=== PATIENT | female | born 1940 | race Caucasian/White ===

== ENCOUNTER 2019-08-17 16:20 | Observation (INO) | payer MEDICAID, MEDICARE ==
[2019-08-17] MEDS ORDERED: Albuterol/Ipratropium 3.0-0.5 MG/3 ML Neb Soln ONE (16:25)
[2019-08-17] MEDS ORDERED: Aspirin 81 MG Tab.Chew PO ONE (16:31)
[2019-08-17] MEDS ORDERED: methylPREDNISolone Sodium Succinate 125 MG/2 ML SDV IVPUSH ONE (16:32)
--- NOTE | 2019-08-17 16:32 | EDM.PDOC ---
ED HPI GENERAL MEDICAL PROBLEM - General Chief Complaint: Respiratory Problem Stated Complaint: TROUBLE BREATHING Time Seen by Provider: 08/17/19 16:22 - History of Present Illness INITIAL COMMENTS - FREE TEXT/NARRATIVE: HISTORY AND PHYSICAL: History of present illness: Patient is 79-year-old white female history COPD who presents with a concern of shortness of breath patient recently moved to the area and brought her medications but does not have a nebulizer she denies chest pain nausea vomiting fever chills or other complaints. Review of systems: As per history of present illness and below otherwise all systems reviewed and negative. Past medical history: As per history of present illness and as reviewed below otherwise noncontributory. Surgical history: As per history of present illness and as reviewed below otherwise noncontributory. Social history: No reported history of drug or alcohol abuse. Family history: As per history of present illness and as reviewed below otherwise noncontributory. Physical exam: HEENT: Atraumatic, normocephalic, pupils reactive, negative for conjunctival pallor or scleral icterus, mucous membranes moist, throat clear, neck supple, nontender, trachea midline. Lungs: Diminished slightly coarse bilaterally, breath sounds equal bilaterally, chest nontender. Heart: S1S2, regular, negative for clicks, rubs, or JVD. Abdomen: Soft, nondistended, nontender. Negative for masses or hepatosplenomegaly. Negative for costovertebral tenderness. Pelvis: Stable nontender. Genitourinary: Deferred. Rectal: Deferred. Extremities: Atraumatic, negative for cords or calf pain. Neurovascular unremarkable. Neuro: Awake, alert, oriented. Cranial nerves II through XII unremarkable. Cerebellum unremarkable. Motor and sensory unremarkable throughout. Exam nonfocal. Diagnostics: CBC CMP troponin PT/INR chest x-ray EKG Therapeutics: Albuterol ipratropium nebulizer IV O2 monitor I Medrol 125 mg IV Impression: #1 COPD with exacerbation #2 medical noncompliance Definitive disposition and diagnosis as appropriate pending reevaluation and review of above. - Related Data Allergies Allergy/AdvReac Type Severity Reaction Status Date / Time cephalexin [From Keflex] Allergy Hives Verified 08/17/19 16:30 Sulfa (Sulfonamide Allergy Hives Verified 08/17/19 16:30 Antibiotics) ED ROS GENERAL - Review of Systems Review Of Systems: Comprehensive ROS is negative, except as noted in HPI. ED EXAM, GENERAL - Physical Exam Exam: See Below (dictation) Course - Vital Signs Last Recorded V/S: Last Vital Signs Temp 36.5 C 08/17/19 16:26 Pulse 79 08/17/19 18:30 Resp 21 H 08/17/19 18:30 BP 128/58 L 08/17/19 18:30 Pulse Ox 99 08/17/19 18:30 - Orders/Labs/Meds Orders: Active Orders 24 hr Category Date Time Status Cardiac Monitoring [RC] . DIRECTED Care 08/17/19 16:31 Active EKG Documentation Completion [RC] STAT Care 08/17/19 16:31 Active Oxygen Therapy [RC] ASDIRECTED Care 08/17/19 16:31 Active Pulse Oximetry [RC] ASDIRECTED Care 08/17/19 16:31 Active UA W/MICROSCOPIC [URIN] Stat Lab 08/17/19 16:31 Ordered Labs: Laboratory Tests 08/17/19 08/17/19 08/17/19 Range/Units 16:49 16:49 16:49 WBC 10.19 (4.0-11.0) K/uL RBC 4.57 (4.30-5.90) M/uL Hgb 12.7 (12.0-16.0) g/dL Hct 41.4 (36.0-46.0) % MCV 90.6 (80.0-98.0) fL MCH 27.8 (27.0-32.0) pg MCHC 30.7 L (31.0-37.0) g/dL RDW Std Deviation 49.0 (28.0-62.0) fl RDW Coeff of Robinson 15 (11.0-15.0) % Plt Count 331 (150-400) K/uL MPV 9.80 (7.40-12.00) fL Neut % (Auto) 56.5 (48.0-80.0) % Lymph % (Auto) 32.2 (16.0-40.0) % [place] % (Auto) 8.8 (0.0-15.0) % Eos % (Auto) 2.2 (0.0-7.0) % Baso % (Auto) 0.3 (0.0-1.5) % Neut # (Auto) 5.8 H (1.4-5.7) K/uL Lymph # (Auto) 3.3 H (0.6-2.4) K/uL [place] # (Auto) 0.9 H (0.0-0.8) K/uL Eos # (Auto) 0.2 (0.0-0.7) K/uL Baso # (Auto) 0.0 (0.0-0.1) K/uL Nucleated RBC % 0.0 /100WBC Nucleated RBCs # 0 K/uL INR 0.97 Sodium 146 H (136-145) mmol/L Potassium 4.2 (3.5-5.1) mmol/L Chloride 111 H (98-107) mmol/L Carbon Dioxide 26.1 (21.0-32.0) mmol/L BUN 12 (7.0-18.0) mg/dL Creatinine 0.9 (0.6-1.0) mg/dL Est Cr Clr Drug Dosing 50.90 mL/min Estimated GFR (MDRD) > 60.0 ml/min Glucose 119 H (74-106) mg/dL Calcium 8.9 (8.5-10.1) mg/dL Total Bilirubin 0.3 (0.2-1.0) mg/dL AST 33 (15-37) IU/L ALT 32 (14-63) IU/L Alkaline Phosphatase 76 (46-116) U/L Troponin I < 0.050 (0.000-0.056) ng/mL Total Protein 6.4 (6.4-8.2) g/dL Albumin 3.0 L (3.4-5.0) g/dL Globulin 3.4 (2.6-4.0) g/dL Albumin/Globulin Ratio 0.9 (0.9-1.6) Meds: Medications Discontinued Medications Generic Name Dose Route Start Last Admin Trade Name Freq PRN Reason Stop Dose Admin Albuterol/Ipratropium Confirm 08/17/19 16:25 08/17/19 17:07 Duoneb 3.0-0.5 Mg/3 Ml Administered 08/17/19 16:26 3 ml Dose Administration 3 ml .ROUTE .STK-MED ONE Aspirin 324 mg 08/17/19 16:31 08/17/19 17:07 Aspirin PO 08/17/19 16:32 324 mg ONETIME ONE Administration Methylprednisolone Sodium Succinate 125 mg 08/17/19 16:32 08/17/19 17:09 Solu-Medrol IVPUSH 08/17/19 16:33 125 mg ONETIME ONE Administration Departure - Departure Time of Disposition: 18:40 Disposition: Home, Self-Care 01 Condition: Good Clinical Impression: COPD (chronic obstructive pulmonary disease) - Discharge Information Referrals: Kady Cantrell DO [Primary Care Provider] - Forms: ED Department Discharge - My Orders Last 24 Hours: My Active Orders 08/17/19 16:31 Cardiac Monitoring [RC] . DIRECTED EKG Documentation Completion [RC] STAT Oxygen Therapy [RC] ASDIRECTED Pulse Oximetry [RC] ASDIRECTED UA W/MICROSCOPIC [URIN] Stat - Assessment/Plan Last 24 Hours: My Active Orders 08/17/19 16:31 Cardiac Monitoring [RC] . DIRECTED EKG Documentation Completion [RC] STAT Oxygen Therapy [RC] ASDIRECTED Pulse Oximetry [RC] ASDIRECTED UA W/MICROSCOPIC [URIN] Stat
[2019-08-17 17:26] LABS: BLOOD UREA NITROGEN,BUN 12 mg/dL (7.0-18.0); CARBON DIOXIDE,CO2 26.1 mmol/L (21.0-32.0); CHLORIDE,CL 111 mmol/L (98-107); GLUCOSE RANDOM 119 mg/dL (74-106); POTASSIUM,K 4.2 mmol/L (3.5-5.1); SODIUM,NA 146 mmol/L (136-145)
--- NOTE | 2019-08-17 18:08 | CR ---
Indication: SOB Technique: A single AP view of the chest was obtained. Comparison: None Findings: The heart is normal in size. The lungs are clear. No infiltrate, pleural effusion, or pneumothorax is identified. Impression: No acute cardiopulmonary process. Dictated by Bethany Woodruff MD @ Aug 17 2019 6:04PM Signed by Dr. Bethany Woodruff @ Aug 17 2019 6:06PM
[2019-08-17] MEDS ORDERED: Gabapentin 300 MG Cap PO SCH (21:00)
[2019-08-17] MEDS: Insulin Aspart 100 Units/ML 3 ML Pen SUBCUT SCH (22:04)
[2019-08-17] MEDS ORDERED: Albuterol/Ipratropium 3.0-0.5 MG/3 ML Neb Soln NEB PRN (22:25)
--- NOTE | 2019-08-17 22:37 | PCM.HP.2 ---
H&P History of Present Illness - General Date of Service: 08/17/19 Admit Problem/Dx: Admission Diagnosis/Problem Admission Diagnosis/Problem COPD, Mild chronic obstructive pulmonary disease - History of Present Illness Initial Comments - Free Text/Narative: 79 yo female with pmh of COPD, ZAHRA, atrial fibrillation, s/p ablation on Eliquis who presents with one day history of exertional dyspnea, cough, and wheezing. Patient denies any fevers, chest pain, or chills. legs Pain Score (Numeric/FACES): 10 - Related Data Allergies/Adverse Reactions: Allergies Allergy/AdvReac Type Severity Reaction Status Date / Time cephalexin [From Keflex] Allergy Hives Verified 08/17/19 20:25 Sulfa (Sulfonamide Allergy Hives Verified 08/17/19 20:25 Antibiotics) Home Medications: Home Meds Acyclovir 400 mg PO DAILY 08/17/19 [History] Allopurinol [Zyloprim] 100 mg PO DAILY 08/17/19 [History] Apixaban [Eliquis] 5 mg PO BID 08/17/19 [History] Cholecalciferol (Vitamin D3) [Vitamin D] 50,000 unit PO WEEKLY 08/17/19 [History ] Furosemide [Lasix] 80 mg PO BID 08/17/19 [History] Gabapentin [Neurontin] 100 mg PO DAILY 08/17/19 [History] Gabapentin [Neurontin] 300 mg PO BEDTIME 08/17/19 [History] Levothyroxine 125 mcg PO ACBREAKFAST 08/17/19 [History] Liraglutide [Victoza] 1.8 mg SUBCUT DAILY 08/17/19 [History] Meloxicam [Mobic] 7.5 mg PO BID 08/17/19 [History] Montelukast [Singulair] 10 mg PO DAILY 08/17/19 [History] Nystatin [Nystop] 60 gm TP BID 08/17/19 [History] Potassium Chloride 32 meq PO BID 08/17/19 [History] Simvastatin 20 mg PO BEDTIME 08/17/19 [History] amLODIPine [Norvasc] 5 mg PO DAILY 08/17/19 [History] metFORMIN [Glucophage XR] 500 mg PO BIDMEALS 08/17/19 [History] Albuterol [Ventolin HFA] 1 puff INH Q4H PRN #1 puff 08/18/19 [Rx] Fluticasone/Salmeterol [Advair 250-50 Diskus] 1 each IH BID #1 disk.w.dev [Rx] Levofloxacin [Levaquin] 500 mg PO DAILY #5 tablet 08/18/19 [Rx] predniSONE [Prednisone] 50 mg PO DAILY #5 tablet 08/18/19 [Rx] Past Medical History Cardiovascular History: Reports: Heart Failure, Hypertension Respiratory History: Reports: COPD Musculoskeletal History: Reports: Back Pain, Chronic Endocrine/Metabolic History: Reports: Hypothyroidism - Infectious Disease History Infectious Disease History: Reports: Chicken Pox Social & Family History - Family History Family Medical History: Noncontributory - Tobacco Use Smoking Status *Q: Never Smoker H&P Review of Systems - Review of Systems: Review Of Systems: Comprehensive ROS is negative, except as noted in HPI. Exam - Exam Exam: See Below - Vital Signs Vital Signs: Last Vital Signs Temp 36.4 C 08/17/19 20:00 Pulse 85 08/17/19 20:00 Resp 19 08/17/19 20:00 BP 129/59 L 08/17/19 20:00 Pulse Ox 97 08/17/19 20:00 Weight: 106.141 kg - Exam General: Alert, Oriented Lungs: Clear to Auscultation, Normal Respiratory Effort Cardiovascular: Regular Rate, Regular Rhythm GI/Abdominal Exam: Normal Bowel Sounds, Soft, Non-Tender Extremities: Non-Tender, No Pedal Edema Skin: Warm, Dry, Intact - Patient Data Lab Results Last 24 hrs: Laboratory Results - last 24 hr 08/17/19 08/17/19 08/17/19 Range/Units 16:49 16:49 16:49 WBC 10.19 (4.0-11.0) K/uL RBC 4.57 (4.30-5.90) M/uL Hgb 12.7 (12.0-16.0) g/dL Hct 41.4 (36.0-46.0) % MCV 90.6 (80.0-98.0) fL MCH 27.8 (27.0-32.0) pg MCHC 30.7 L (31.0-37.0) g/dL RDW Std Deviation 49.0 (28.0-62.0) fl RDW Coeff of Robinson 15 (11.0-15.0) % Plt Count 331 (150-400) K/uL MPV 9.80 (7.40-12.00) fL Neut % (Auto) 56.5 (48.0-80.0) % Lymph % (Auto) 32.2 (16.0-40.0) % [place] % (Auto) 8.8 (0.0-15.0) % Eos % (Auto) 2.2 (0.0-7.0) % Baso % (Auto) 0.3 (0.0-1.5) % Neut # (Auto) 5.8 H (1.4-5.7) K/uL Lymph # (Auto) 3.3 H (0.6-2.4) K/uL [place] # (Auto) 0.9 H (0.0-0.8) K/uL Eos # (Auto) 0.2 (0.0-0.7) K/uL Baso # (Auto) 0.0 (0.0-0.1) K/uL Nucleated RBC % 0.0 /100WBC Nucleated RBCs # 0 K/uL INR 0.97 Sodium 146 H (136-145) mmol/L Potassium 4.2 (3.5-5.1) mmol/L Chloride 111 H (98-107) mmol/L Carbon Dioxide 26.1 (21.0-32.0) mmol/L BUN 12 (7.0-18.0) mg/dL Creatinine 0.9 (0.6-1.0) mg/dL Est Cr Clr Drug Dosing 50.90 mL/min Estimated GFR (MDRD) > 60.0 ml/min Glucose 119 H (74-106) mg/dL POC Glucose (60-110) mg/dL Calcium 8.9 (8.5-10.1) mg/dL Total Bilirubin 0.3 (0.2-1.0) mg/dL AST 33 (15-37) IU/L ALT 32 (14-63) IU/L Alkaline Phosphatase 76 (46-116) U/L Troponin I < 0.050 (0.000-0.056) ng/mL Total Protein 6.4 (6.4-8.2) g/dL Albumin 3.0 L (3.4-5.0) g/dL Globulin 3.4 (2.6-4.0) g/dL Albumin/Globulin Ratio 0.9 (0.9-1.6) Urine Color Urine Appearance Urine pH (5.0-8.0) Ur Specific [place] (1.001-1.035) Urine Protein (NEGATIVE) mg/dL Urine Glucose (UA) (NEGATIVE) mg/dL Urine Ketones (NEGATIVE) mg/dL Urine Occult Blood (NEGATIVE) Urine Nitrite (NEGATIVE) Urine Bilirubin (NEGATIVE) Urine Urobilinogen (<2.0) EU/dL Ur Leukocyte Esterase (NEGATIVE) Urine RBC (0-2/HPF) Urine WBC (0-5/HPF) Ur Epithelial Cells (NONE-FEW) Urine Bacteria (NEGATIVE) Urine Mucus (NONE-MOD) 08/17/19 08/17/19 Range/Units 18:40 21:33 WBC (4.0-11.0) K/uL RBC (4.30-5.90) M/uL Hgb (12.0-16.0) g/dL Hct (36.0-46.0) % MCV (80.0-98.0) fL MCH (27.0-32.0) pg MCHC (31.0-37.0) g/dL RDW Std Deviation (28.0-62.0) fl RDW Coeff of [place] (11.0-15.0) % Plt Count (150-400) K/uL MPV (7.40-12.00) fL Neut % (Auto) (48.0-80.0) % Lymph % (Auto) (16.0-40.0) % [place] % (Auto) (0.0-15.0) % Eos % (Auto) (0.0-7.0) % Baso % (Auto) (0.0-1.5) % Neut # (Auto) (1.4-5.7) K/uL Lymph # (Auto) (0.6-2.4) K/uL [place] # (Auto) (0.0-0.8) K/uL Eos # (Auto) (0.0-0.7) K/uL Baso # (Auto) (0.0-0.1) K/uL Nucleated RBC % /100WBC Nucleated RBCs # K/uL INR Sodium (136-145) mmol/L Potassium (3.5-5.1) mmol/L Chloride (98-107) mmol/L Carbon Dioxide (21.0-32.0) mmol/L BUN (7.0-18.0) mg/dL Creatinine (0.6-1.0) mg/dL Est Cr Clr Drug Dosing mL/min Estimated GFR (MDRD) ml/min Glucose (74-106) mg/dL POC Glucose 195 H (60-110) mg/dL Calcium (8.5-10.1) mg/dL Total Bilirubin (0.2-1.0) mg/dL AST (15-37) IU/L ALT (14-63) IU/L Alkaline Phosphatase (46-116) U/L Troponin I (0.000-0.056) ng/mL Total Protein (6.4-8.2) g/dL Albumin (3.4-5.0) g/dL Globulin (2.6-4.0) g/dL Albumin/Globulin Ratio (0.9-1.6) Urine Color YELLOW Urine Appearance CLOUDY Urine pH 6.0 (5.0-8.0) Ur Specific [place] 1.015 (1.001-1.035) Urine Protein NEGATIVE (NEGATIVE) mg/dL Urine Glucose (UA) NEGATIVE (NEGATIVE) mg/dL Urine Ketones NEGATIVE (NEGATIVE) mg/dL Urine Occult Blood TRACE-INTACT H (NEGATIVE) Urine Nitrite POSITIVE H (NEGATIVE) Urine Bilirubin NEGATIVE (NEGATIVE) Urine Urobilinogen 0.2 (<2.0) EU/dL Ur Leukocyte Esterase SMALL H (NEGATIVE) Urine RBC 1-3 (0-2/HPF) Urine WBC 30-35 (0-5/HPF) Ur Epithelial Cells FEW (NONE-FEW) Urine Bacteria 4+ H (NEGATIVE) Urine Mucus LIGHT (NONE-MOD) Result Diagrams: 08/18/19 06:03 08/18/19 06:03 Enio Results Last 24 hrs: Microbiology 08/17/19 17:52 Influenza Type A Antigen Screen - Final Nasopharyngeal Swab NEGATIVE INFLUENZA A VIRUS AG REFERENCE RANGE: NEGATIVE Influenza Type B Antigen Screen - Final NEGATIVE INFLUENZA B VIRUS AG REFERENCE RANGE: NEGATIVE Problem List Initiated/Reviewed/Updated: Yes Orders Last 24hrs: Active Orders 24 hr Category Date Time Status Patient Status [ADT] Stat ADT 08/17/19 18:42 Active Antiembolic Devices [RC] PER UNIT ROUTINE Care 08/17/19 22:26 Ordered Blood Glucose Check, Bedside [RC] TIDAC Care 08/17/19 21:27 Active Cardiac Monitoring [RC] . DIRECTED Care 08/17/19 16:31 Active EKG Documentation Completion [RC] STAT Care 08/17/19 16:31 Active Oxygen Therapy [RC] ASDIRECTED Care 08/17/19 16:31 Active Oxygen Therapy [RC] PRN Care 08/17/19 22:25 Ordered Pulse Oximetry [RC] ASDIRECTED Care 08/17/19 16:31 Active RT Aerosol Therapy [RC] ASDIRECTED Care 08/17/19 21:29 Active RT Aerosol Therapy [RC] ASDIRECTED Care 08/17/19 22:26 Ordered Up ad Jackie [RC] ASDIRECTED Care 08/17/19 22:25 Ordered VTE/DVT Education [RC] PER UNIT ROUTINE Care 08/17/19 22:25 Ordered Vital Signs [RC] Q4H Care 08/17/19 22:25 Ordered ADA Diabetic [[place] [employer] Diet] [DIET Diet 08/18/19 Breakfast Active ] BASIC METABOLIC PANEL,BMP [CHEM] AM Lab 08/18/19 05:11 Ordered CBC WITH AUTO DIFF [HEME] AM Lab 08/18/19 05:11 Ordered Albuterol/Ipratropium [DuoNeb 3.0-0.5 MG/3 ML] Med 08/17/19 22:25 Ordered 3 ml NEB Q2H PRN Albuterol/Ipratropium [DuoNeb 3.0-0.5 MG/3 ML] Med 08/18/19 00:00 Active 3 ml NEB Q6HRRT Apixaban [Eliquis] Med 08/18/19 09:00 Ordered 5 mg PO BID Furosemide [Lasix] Med 08/18/19 09:00 Ordered 80 mg PO BID Gabapentin [Neurontin] Med 08/18/19 09:00 Ordered 100 mg PO DAILY Gabapentin [Neurontin] Med 08/17/19 21:00 Ordered 300 mg PO BEDTIME Insulin Aspart [NovoLOG] Med 08/17/19 22:00 Active See Protocol SUBCUT QID Liraglutide Med 08/18/19 09:00 Ordered 1.8 mg SUBCUT DAILY Montelukast [Singulair] Med 08/18/19 09:00 Ordered 10 mg PO DAILY Pantoprazole [ProTONIX] Med 08/18/19 09:00 Ordered 40 mg PO DAILY Simvastatin [Zocor] Med 08/18/19 21:00 Ordered 20 mg PO BEDTIME amLODIPine [Norvasc] Med 08/18/19 09:00 Ordered 5 mg PO DAILY methylPREDNISolone Sod Succ [Solu-MEDROL] Med 08/18/19 09:00 Ordered 125 mg IVPUSH DAILY Sequential Compression Device [OM.PC] Per Unit Routine Oth 08/17/19 22:25 Ordered Resuscitation Status Routine Resus Stat 08/17/19 22:25 Ordered Medication Orders Albuterol/Ipratropium (Duoneb 3.0-0.5 Mg/3 Ml) 3 ml NEB Q6HRRT BAKARI Albuterol/Ipratropium (Duoneb 3.0-0.5 Mg/3 Ml) 3 ml NEB Q2H PRN PRN Reason: Shortness Of Breath/wheezing Amlodipine Besylate (Norvasc) 5 mg PO DAILY BAKARI Apixaban (Eliquis) 5 mg PO BID BAKARI Furosemide (Lasix) 80 mg PO BID BAKARI Gabapentin (Neurontin) 100 mg PO DAILY BAKARI Gabapentin (Neurontin) 300 mg PO BEDTIME BAKARI Insulin Aspart (Novolog) 0 unit SUBCUT QID BAKARI; Protocol Last Admin: 08/17/19 22:04 Dose: 1 unit Methylprednisolone Sodium Succinate (Solu-Medrol) 125 mg IVPUSH DAILY [facility] Montelukast Sodium (Singulair) 10 mg PO DAILY [facility] Non-Formulary Medication (Liraglutide) 1.8 mg SUBCUT DAILY [facility] Pantoprazole Sodium (Protonix) 40 mg PO DAILY BAKARI Simvastatin (Zocor) 20 mg PO BEDTIME BAKARI Assessment/Plan Comment:: 79 yo female admitted for COPD exacerbation.
[2019-08-17] MEDS: Albuterol/Ipratropium 3.0-0.5 MG/3 ML Neb Soln NEB SCH (23:26)
[2019-08-18] MEDS: Insulin Aspart 100 Units/ML 3 ML Pen SUBCUT SCH ×3 (01:02→12:17)
[2019-08-18] MEDS: Albuterol/Ipratropium 3.0-0.5 MG/3 ML Neb Soln NEB SCH ×2 (05:58→11:18)
[2019-08-18 06:33] LABS: BLOOD UREA NITROGEN,BUN 13 mg/dL (7.0-18.0); CARBON DIOXIDE,CO2 24.1 mmol/L (21.0-32.0); CHLORIDE,CL 108 mmol/L (98-107); GLUCOSE RANDOM 170 mg/dL (74-106); POTASSIUM,K 4.5 mmol/L (3.5-5.1); SODIUM,NA 143 mmol/L (136-145)
[2019-08-18] MEDS ORDERED: Insulin Aspart 100 Units/ML 3 ML Pen SUBCUT SCH (07:30)
[2019-08-18] MEDS ORDERED: Furosemide 80 MG Tab PO SCH (08:00)
[2019-08-18] MEDS ORDERED: methylPREDNISolone Sodium Succinate 125 MG/2 ML SDV IVPUSH SCH (09:00)
[2019-08-18] MEDS ORDERED: Montelukast 10 MG Tab PO SCH (09:00)
[2019-08-18] MEDS ORDERED: Liraglutide [Victoza] 1.8 MG SUBCUT SCH (09:00)
[2019-08-18] MEDS ORDERED: amLODIPine 5 MG Tab PO SCH (09:00)
[2019-08-18] MEDS ORDERED: Apixaban 5 MG Tab PO SCH (09:00)
[2019-08-18] MEDS ORDERED: Gabapentin 100 MG Cap PO SCH (09:00)
[2019-08-18] MEDS ORDERED: Pantoprazole 40 MG Tab.CR PO SCH (09:00)
--- NOTE | 2019-08-18 12:20 | PCM.DCSUM1 ---
Discharge Summary - Discharge Data Discharge Date: 08/18/19 Discharge Disposition: Home, Self-Care 01 Condition: Good - Referral to Home Health Primary Care Physician: Kady Cantrell DO - Patient Summary/Data Hospital Course: 79 yo female with pmh of COPD, ZAHRA, atrial fibrillation, s/p ablation on Eliquis who presented with one day history of exertional dyspnea, cough, and wheezing. Patient was satting mid 90s on room air. She had wheezing on presentation but had no acute respiratory distress. Chest x-ray reported no acute pulmonary disease. She was admitted for COPD exacerbation and treated with solumedrol and duonebs. The following morning patient was requesting discharge home. She was discharge home with five more days of prednisone, albuterol inhaler and Advair. Patient was also sent home with Levaquin for treatment of a UTI. - Discharge Plan Prescriptions/Med Rec: Albuterol [Ventolin HFA] 1 puff INH Q4H PRN #1 puff PRN Reason: Wheezing Fluticasone/Salmeterol [Advair 250-50 Diskus] 1 each IH BID #1 disk.w.dev Levofloxacin [Levaquin] 500 mg PO DAILY #5 tablet predniSONE [Prednisone] 50 mg PO DAILY #5 tablet Home Medications: Home Meds Acyclovir 400 mg PO DAILY 08/17/19 [History] Allopurinol [Zyloprim] 100 mg PO DAILY 08/17/19 [History] Apixaban [Eliquis] 5 mg PO BID 08/17/19 [History] Cholecalciferol (Vitamin D3) [Vitamin D] 50,000 unit PO WEEKLY 08/17/19 [History ] Furosemide [Lasix] 80 mg PO BID 08/17/19 [History] Gabapentin [Neurontin] 100 mg PO DAILY 08/17/19 [History] Gabapentin [Neurontin] 300 mg PO BEDTIME 08/17/19 [History] Levothyroxine 125 mcg PO ACBREAKFAST 08/17/19 [History] Liraglutide [Victoza] 1.8 mg SUBCUT DAILY 08/17/19 [History] Meloxicam [Mobic] 7.5 mg PO BID 08/17/19 [History] Montelukast [Singulair] 10 mg PO DAILY 08/17/19 [History] Nystatin [Nystop] 60 gm TP BID 08/17/19 [History] Potassium Chloride 32 meq PO BID 08/17/19 [History] Simvastatin 20 mg PO BEDTIME 08/17/19 [History] amLODIPine [Norvasc] 5 mg PO DAILY 08/17/19 [History] metFORMIN [Glucophage XR] 500 mg PO BIDMEALS 08/17/19 [History] Albuterol [Ventolin HFA] 1 puff INH Q4H PRN #1 puff 08/18/19 [Rx] Fluticasone/Salmeterol [Advair 250-50 Diskus] 1 each IH BID #1 disk.w.dev [Rx] Levofloxacin [Levaquin] 500 mg PO DAILY #5 tablet 08/18/19 [Rx] predniSONE [Prednisone] 50 mg PO DAILY #5 tablet 08/18/19 [Rx] Forms: ED Department Discharge Referrals: Kady Cantrell DO [Primary Care Provider] - - Discharge Summary/Plan Comment DC Time >30 min.: No - Patient Data Vitals - Most Recent: Last Vital Signs Temp 36.0 C 08/18/19 04:00 Pulse 81 08/18/19 04:00 Resp 16 08/18/19 04:00 BP 133/63 08/18/19 09:37 Pulse Ox 96 08/18/19 06:01 Weight - Most Recent: 106.141 kg I&O - Last 24 hours: Intake & Output 08/17/19 08/18/19 08/18/19 22:59 06:59 14:59 Intake Total 150 Output Total 500 Balance -350 Lab Results - Last 24 hrs: Laboratory Results - last 24 hr 08/17/19 08/17/19 08/17/19 Range/Units 16:49 16:49 16:49 WBC 10.19 (4.0-11.0) K/uL RBC 4.57 (4.30-5.90) M/uL Hgb 12.7 (12.0-16.0) g/dL Hct 41.4 (36.0-46.0) % MCV 90.6 (80.0-98.0) fL MCH 27.8 (27.0-32.0) pg MCHC 30.7 L (31.0-37.0) g/dL RDW Std Deviation 49.0 (28.0-62.0) fl RDW Coeff of Robinson 15 (11.0-15.0) % Plt Count 331 (150-400) K/uL MPV 9.80 (7.40-12.00) fL Neut % (Auto) 56.5 (48.0-80.0) % Lymph % (Auto) 32.2 (16.0-40.0) % Glynn % (Auto) 8.8 (0.0-15.0) % Eos % (Auto) 2.2 (0.0-7.0) % Baso % (Auto) 0.3 (0.0-1.5) % Neut # (Auto) 5.8 H (1.4-5.7) K/uL Lymph # (Auto) 3.3 H (0.6-2.4) K/uL Glynn # (Auto) 0.9 H (0.0-0.8) K/uL Eos # (Auto) 0.2 (0.0-0.7) K/uL Baso # (Auto) 0.0 (0.0-0.1) K/uL Nucleated RBC % 0.0 /100WBC Nucleated RBCs # 0 K/uL INR 0.97 Sodium 146 H (136-145) mmol/L Potassium 4.2 (3.5-5.1) mmol/L Chloride 111 H (98-107) mmol/L Carbon Dioxide 26.1 (21.0-32.0) mmol/L BUN 12 (7.0-18.0) mg/dL Creatinine 0.9 (0.6-1.0) mg/dL Est Cr Clr Drug Dosing 50.90 mL/min Estimated GFR (MDRD) > 60.0 ml/min Glucose 119 H (74-106) mg/dL POC Glucose (60-110) mg/dL Calcium 8.9 (8.5-10.1) mg/dL Total Bilirubin 0.3 (0.2-1.0) mg/dL AST 33 (15-37) IU/L ALT 32 (14-63) IU/L Alkaline Phosphatase 76 (46-116) U/L Troponin I < 0.050 (0.000-0.056) ng/mL Total Protein 6.4 (6.4-8.2) g/dL Albumin 3.0 L (3.4-5.0) g/dL Globulin 3.4 (2.6-4.0) g/dL Albumin/Globulin Ratio 0.9 (0.9-1.6) Urine Color Urine Appearance Urine pH (5.0-8.0) Ur Specific [place] (1.001-1.035) Urine Protein (NEGATIVE) mg/dL Urine Glucose (UA) (NEGATIVE) mg/dL Urine Ketones (NEGATIVE) mg/dL Urine Occult Blood (NEGATIVE) Urine Nitrite (NEGATIVE) Urine Bilirubin (NEGATIVE) Urine Urobilinogen (<2.0) EU/dL Ur Leukocyte Esterase (NEGATIVE) Urine RBC (0-2/HPF) Urine WBC (0-5/HPF) Ur Epithelial Cells (NONE-FEW) Urine Bacteria (NEGATIVE) Urine Mucus (NONE-MOD) 08/17/19 08/17/19 08/18/19 Range/Units 18:40 21:33 00:28 WBC (4.0-11.0) K/uL RBC (4.30-5.90) M/uL Hgb (12.0-16.0) g/dL Hct (36.0-46.0) % MCV (80.0-98.0) fL MCH (27.0-32.0) pg MCHC (31.0-37.0) g/dL RDW Std Deviation (28.0-62.0) fl RDW Coeff of Robinson (11.0-15.0) % Plt Count (150-400) K/uL MPV (7.40-12.00) fL Neut % (Auto) (48.0-80.0) % Lymph % (Auto) (16.0-40.0) % Glynn % (Auto) (0.0-15.0) % Eos % (Auto) (0.0-7.0) % Baso % (Auto) (0.0-1.5) % Neut # (Auto) (1.4-5.7) K/uL Lymph # (Auto) (0.6-2.4) K/uL Glynn # (Auto) (0.0-0.8) K/uL Eos # (Auto) (0.0-0.7) K/uL Baso # (Auto) (0.0-0.1) K/uL Nucleated RBC % /100WBC Nucleated RBCs # K/uL INR Sodium (136-145) mmol/L Potassium (3.5-5.1) mmol/L Chloride (98-107) mmol/L Carbon Dioxide (21.0-32.0) mmol/L BUN (7.0-18.0) mg/dL Creatinine (0.6-1.0) mg/dL Est Cr Clr Drug Dosing mL/min Estimated GFR (MDRD) ml/min Glucose (74-106) mg/dL POC Glucose 195 H 183 H (60-110) mg/dL Calcium (8.5-10.1) mg/dL Total Bilirubin (0.2-1.0) mg/dL AST (15-37) IU/L ALT (14-63) IU/L Alkaline Phosphatase (46-116) U/L Troponin I (0.000-0.056) ng/mL Total Protein (6.4-8.2) g/dL Albumin (3.4-5.0) g/dL Globulin (2.6-4.0) g/dL Albumin/Globulin Ratio (0.9-1.6) Urine Color YELLOW Urine Appearance CLOUDY Urine pH 6.0 (5.0-8.0) Ur Specific [place] 1.015 (1.001-1.035) Urine Protein NEGATIVE (NEGATIVE) mg/dL Urine Glucose (UA) NEGATIVE (NEGATIVE) mg/dL Urine Ketones NEGATIVE (NEGATIVE) mg/dL Urine Occult Blood TRACE-INTACT H (NEGATIVE) Urine Nitrite POSITIVE H (NEGATIVE) Urine Bilirubin NEGATIVE (NEGATIVE) Urine Urobilinogen 0.2 (<2.0) EU/dL Ur Leukocyte Esterase SMALL H (NEGATIVE) Urine RBC 1-3 (0-2/HPF) Urine WBC 30-35 (0-5/HPF) Ur Epithelial Cells FEW (NONE-FEW) Urine Bacteria 4+ H (NEGATIVE) Urine Mucus LIGHT (NONE-MOD) 08/18/19 08/18/19 08/18/19 Range/Units 06:03 06:03 06:09 WBC 9.67 (4.0-11.0) K/uL RBC 4.81 (4.30-5.90) M/uL Hgb 13.4 (12.0-16.0) g/dL Hct 42.7 (36.0-46.0) % MCV 88.8 (80.0-98.0) fL MCH 27.9 (27.0-32.0) pg MCHC 31.4 (31.0-37.0) g/dL RDW Std Deviation 46.7 (28.0-62.0) fl RDW Coeff of Robinson 14 (11.0-15.0) % Plt Count 355 (150-400) K/uL MPV 10.00 (7.40-12.00) fL Neut % (Auto) 85.4 H (48.0-80.0) % Lymph % (Auto) 13.9 L (16.0-40.0) % Glynn % (Auto) 0.6 (0.0-15.0) % Eos % (Auto) 0.0 (0.0-7.0) % Baso % (Auto) 0.1 (0.0-1.5) % Neut # (Auto) 8.3 H (1.4-5.7) K/uL Lymph # (Auto) 1.3 (0.6-2.4) K/uL Glynn # (Auto) 0.1 (0.0-0.8) K/uL Eos # (Auto) 0.0 (0.0-0.7) K/uL Baso # (Auto) 0.0 (0.0-0.1) K/uL Nucleated RBC % 0.0 /100WBC Nucleated RBCs # 0 K/uL INR Sodium 143 (136-145) mmol/L Potassium 4.5 (3.5-5.1) mmol/L Chloride 108 H (98-107) mmol/L Carbon Dioxide 24.1 (21.0-32.0) mmol/L BUN 13 (7.0-18.0) mg/dL Creatinine 1.0 (0.6-1.0) mg/dL Est Cr Clr Drug Dosing 45.82 mL/min Estimated GFR (MDRD) > 60.0 ml/min Glucose 170 H (74-106) mg/dL POC Glucose 161 H (60-110) mg/dL Calcium 9.2 (8.5-10.1) mg/dL Total Bilirubin (0.2-1.0) mg/dL AST (15-37) IU/L ALT (14-63) IU/L Alkaline Phosphatase (46-116) U/L Troponin I (0.000-0.056) ng/mL Total Protein (6.4-8.2) g/dL Albumin (3.4-5.0) g/dL Globulin (2.6-4.0) g/dL Albumin/Globulin Ratio (0.9-1.6) Urine Color Urine Appearance Urine pH (5.0-8.0) Ur Specific [place] (1.001-1.035) Urine Protein (NEGATIVE) mg/dL Urine Glucose (UA) (NEGATIVE) mg/dL Urine Ketones (NEGATIVE) mg/dL Urine Occult Blood (NEGATIVE) Urine Nitrite (NEGATIVE) Urine Bilirubin (NEGATIVE) Urine Urobilinogen (<2.0) EU/dL Ur Leukocyte Esterase (NEGATIVE) Urine RBC (0-2/HPF) Urine WBC (0-5/HPF) Ur Epithelial Cells (NONE-FEW) Urine Bacteria (NEGATIVE) Urine Mucus (NONE-MOD) 08/18/19 Range/Units 11:56 WBC (4.0-11.0) K/uL RBC (4.30-5.90) M/uL Hgb (12.0-16.0) g/dL Hct (36.0-46.0) % MCV (80.0-98.0) fL MCH (27.0-32.0) pg MCHC (31.0-37.0) g/dL RDW Std Deviation (28.0-62.0) fl RDW Coeff of Robinson (11.0-15.0) % Plt Count (150-400) K/uL MPV (7.40-12.00) fL Neut % (Auto) (48.0-80.0) % Lymph % (Auto) (16.0-40.0) % Glynn % (Auto) (0.0-15.0) % Eos % (Auto) (0.0-7.0) % Baso % (Auto) (0.0-1.5) % Neut # (Auto) (1.4-5.7) K/uL Lymph # (Auto) (0.6-2.4) K/uL Glynn # (Auto) (0.0-0.8) K/uL Eos # (Auto) (0.0-0.7) K/uL Baso # (Auto) (0.0-0.1) K/uL Nucleated RBC % /100WBC Nucleated RBCs # K/uL INR Sodium (136-145) mmol/L Potassium (3.5-5.1) mmol/L Chloride (98-107) mmol/L Carbon Dioxide (21.0-32.0) mmol/L BUN (7.0-18.0) mg/dL Creatinine (0.6-1.0) mg/dL Est Cr Clr Drug Dosing mL/min Estimated GFR (MDRD) ml/min Glucose (74-106) mg/dL POC Glucose 153 H (60-110) mg/dL Calcium (8.5-10.1) mg/dL Total Bilirubin (0.2-1.0) mg/dL AST (15-37) IU/L ALT (14-63) IU/L Alkaline Phosphatase (46-116) U/L Troponin I (0.000-0.056) ng/mL Total Protein (6.4-8.2) g/dL Albumin (3.4-5.0) g/dL Globulin (2.6-4.0) g/dL Albumin/Globulin Ratio (0.9-1.6) Urine Color Urine Appearance Urine pH (5.0-8.0) Ur Specific [place] (1.001-1.035) Urine Protein (NEGATIVE) mg/dL Urine Glucose (UA) (NEGATIVE) mg/dL Urine Ketones (NEGATIVE) mg/dL Urine Occult Blood (NEGATIVE) Urine Nitrite (NEGATIVE) Urine Bilirubin (NEGATIVE) Urine Urobilinogen (<2.0) EU/dL Ur Leukocyte Esterase (NEGATIVE) Urine RBC (0-2/HPF) Urine WBC (0-5/HPF) Ur Epithelial Cells (NONE-FEW) Urine Bacteria (NEGATIVE) Urine Mucus (NONE-MOD) KIMO Results - Last 24 hrs: Microbiology 08/17/19 17:52 Influenza Type A Antigen Screen - Final Nasopharyngeal Swab NEGATIVE INFLUENZA A VIRUS AG REFERENCE RANGE: NEGATIVE Influenza Type B Antigen Screen - Final NEGATIVE INFLUENZA B VIRUS AG REFERENCE RANGE: NEGATIVE Med Orders - Current: Current Medications Albuterol/Ipratropium (Duoneb 3.0-0.5 Mg/3 Ml) 3 ml NEB Q6HRRT BAKARI Last Admin: 08/18/19 11:18 Dose: 3 ml Albuterol/Ipratropium (Duoneb 3.0-0.5 Mg/3 Ml) 3 ml NEB Q2H PRN PRN Reason: Shortness Of Breath/wheezing Amlodipine Besylate (Norvasc) 5 mg PO DAILY [facility] Last Admin: 08/18/19 09:37 Dose: 5 mg Apixaban (Eliquis) 5 mg PO BID BAKARI Last Admin: 08/18/19 09:37 Dose: 5 mg Furosemide (Lasix) 80 mg PO BIDDIURETIC [facility] Last Admin: 08/18/19 08:02 Dose: 80 mg Gabapentin (Neurontin) 100 mg PO DAILY [facility] Last Admin: 08/18/19 09:37 Dose: 100 mg Gabapentin (Neurontin) 300 mg PO BEDTIME [facility] Last Admin: 08/17/19 22:41 Dose: 300 mg Insulin Aspart (Novolog) 0 unit SUBCUT QIDACANDBED [facility]; Protocol Last Admin: 08/18/19 07:35 Dose: 1 unit Methylprednisolone Sodium Succinate (Solu-Medrol) 125 mg IVPUSH DAILY [facility] Last Admin: 08/18/19 09:39 Dose: 125 mg Montelukast Sodium (Singulair) 10 mg PO DAILY [facility] Last Admin: 08/18/19 09:37 Dose: 10 mg Pantoprazole Sodium (Protonix) 40 mg PO DAILY [facility] Last Admin: 08/18/19 09:37 Dose: 40 mg Liraglutide [Victoza (] 1.8 Mg) 1 each SUBCUT DAILY [facility] Last Admin: 08/18/19 10:27 Dose: Not Given Simvastatin (Zocor) 20 mg PO BEDTIME [facility] Discontinued Medications Albuterol/Ipratropium (Duoneb 3.0-0.5 Mg/3 Ml) Confirm Administered Dose 3 ml .ROUTE .STK-MED ONE Stop: 08/17/19 16:26 Last Admin: 08/17/19 17:07 Dose: 3 ml Aspirin (Aspirin) 324 mg PO ONETIME ONE Stop: 08/17/19 16:32 Last Admin: 08/17/19 17:07 Dose: 324 mg Insulin Aspart (Novolog) 0 unit SUBCUT TIDAC [facility]; Protocol Insulin Aspart (Novolog) 0 unit SUBCUT QID [facility]; Protocol Last Admin: 08/18/19 01:02 Dose: Not Given Methylprednisolone Sodium Succinate (Solu-Medrol) 125 mg IVPUSH ONETIME ONE Stop: 08/17/19 16:33 Last Admin: 08/17/19 17:09 Dose: 125 mg
[2019-08-18] MEDS ORDERED: Simvastatin 20 MG Tab PO SCH (21:00)
== END 2019-08-18 12:45 | disposition home or self-care (01) ==
LOC: MW.ED 16:20 → MW.MS 18:42
PROVIDERS: ADMIT Internal Medicine; ATTEND Internal Medicine
DX: J44.1 Chronic obstructive pulmonary disease with (acute) exacerbation (principal); I11.0 Hypertensive heart disease with heart failure; I50.9 Heart failure, unspecified; E03.9 Hypothyroidism, unspecified; N39.0 Urinary tract infection, site not specified; I48.91 Unspecified atrial fibrillation; Z79.01 Long term (current) use of anticoagulants; Z88.1 Allergy status to other antibiotic agents; Z88.2 Allergy status to sulfonamides
CPT/HCPCS: 36415; 71045; 80048; 80053; 81001; 82962; 84484; 85025; 85610; 87804; 93005; 94640; 99285; A9270; J1815; J2930; 96376; G0378; J7620-GY

== ENCOUNTER 2019-08-19 19:32 | Emergency (ER) | payer MEDICAID, MEDICARE ==
[2019-08-19] MEDS ORDERED: Sodium Chloride 0.9% 2.5 ML Syringe FLUSH PRN (19:37)
[2019-08-19] MEDS ORDERED: Sodium Chloride 0.9% 10 ML Syringe FLUSH PRN (19:37)
[2019-08-19] MEDS: Albuterol/Ipratropium 3.0-0.5 MG/3 ML Neb Soln ONE ×2 (19:45→19:58)
--- NOTE | 2019-08-19 19:47 | EDM.PDOC ---
ED HPI GENERAL MEDICAL PROBLEM - General Chief Complaint: Respiratory Problem Stated Complaint: TROUBLE BREATHING Time Seen by Provider: 08/19/19 19:45 Source of Information: Reports: Patient History Limitations: Reports: No Limitations - History of Present Illness INITIAL COMMENTS - FREE TEXT/NARRATIVE: HISTORY AND PHYSICAL: History of present illness: Patient is a 79-year-old female presents to the ED with complaint of shortness of breath and cough. Patient has history of COPD, was admitted 2 days ago for COPD exacerbation. 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 She states she use to use a nebulizer but lost it when she moved to [place]. She denies chest pain, fevers, chills. Review of systems: As per history of present illness and below otherwise all systems reviewed and negative. Past medical history: As per history of present illness and as reviewed below otherwise noncontributory. Surgical history: As per history of present illness and as reviewed below otherwise noncontributory. Social history: No reported history of drug or alcohol abuse. Family history: As per history of present illness and as reviewed below otherwise noncontributory. Physical exam: General: Patient sitting comfortably in no acute distress and nontoxic appearing HEENT: Atraumatic, normocephalic, pupils reactive, negative for conjunctival pallor or scleral icterus, mucous membranes moist, throat clear, neck supple, nontender, trachea midline. No meningeal signs. Lungs: Wheezing throughout all lung jose Heart: S1S2, regular, negative for clicks, rubs, or overt murmur. Abdomen: Soft, nondistended, nontender. Negative for masses or hepatosplenomegaly. Negative for costovertebral tenderness. No rigidity, rebound , guarding. Pelvis: Stable nontender. Genitourinary: Deferred. Rectal: Deferred. Extremities: Atraumatic, negative for cords or calf pain. Neurovascular unremarkable. Neuro: Awake, alert, oriented. Cranial nerves II through XII unremarkable. Cerebellum unremarkable. Motor and sensory unremarkable throughout. Exam nonfocal. Notes: Elevated white count likely due to steroid use, chest x-ray negative and patient is on antibiotics. Dr. Cai evaluated patient and agrees to plan of care. Patient will be discharged home, inhalers were provided from [facility]. Patient has follow up with PCP on 08/31/19 and understands to return to ED if new or worsening symptoms. Diagnostics: CBC, CMP, Therapeutics: DuoNeb x 1 125mg Solumedrol IV Prescriptions: Impression: COPD exacerbation Plan: Continue medications and use inhalers instructed Follow-up with primary care provider Return to ED as needed as discussed Definitive disposition and diagnosis as appropriate pending reevaluation and review of above. low back Pain Score (Numeric/FACES): 10 - Related Data Allergies Allergy/AdvReac Type Severity Reaction Status Date / Time cephalexin [From Keflex] Allergy Hives Verified 08/19/19 19:38 Sulfa (Sulfonamide Allergy Hives Verified 08/19/19 19:38 Antibiotics) Home Meds: Home Meds Acyclovir 400 mg PO DAILY 08/17/19 [History] Allopurinol [Zyloprim] 100 mg PO DAILY 08/17/19 [History] Apixaban [Eliquis] 5 mg PO BID 08/17/19 [History] Cholecalciferol (Vitamin D3) [Vitamin D] 50,000 unit PO WEEKLY 08/17/19 [History ] Furosemide [Lasix] 80 mg PO BID 08/17/19 [History] Gabapentin [Neurontin] 100 mg PO DAILY 08/17/19 [History] Gabapentin [Neurontin] 300 mg PO BEDTIME 08/17/19 [History] Levothyroxine 125 mcg PO ACBREAKFAST 08/17/19 [History] Liraglutide [Victoza] 1.8 mg SUBCUT DAILY 08/17/19 [History] Meloxicam [Mobic] 7.5 mg PO BID 08/17/19 [History] Montelukast [Singulair] 10 mg PO DAILY 08/17/19 [History] Nystatin [Nystop] 60 gm TP BID 08/17/19 [History] Potassium Chloride 32 meq PO BID 08/17/19 [History] Simvastatin 20 mg PO BEDTIME 08/17/19 [History] amLODIPine [Norvasc] 5 mg PO DAILY 08/17/19 [History] metFORMIN [Glucophage XR] 500 mg PO BIDMEALS 08/17/19 [History] Albuterol [Ventolin HFA] 1 puff INH Q4H PRN #1 puff 08/18/19 [Rx] Fluticasone/Salmeterol [Advair 250-50 Diskus] 1 each IH BID #1 disk.w.dev [Rx] Levofloxacin [Levaquin] 500 mg PO DAILY #5 tablet 08/18/19 [Rx] predniSONE [Prednisone] 50 mg PO DAILY #5 tablet 08/18/19 [Rx] Past Medical History Cardiovascular History: Reports: Heart Failure, Hypertension Respiratory History: Reports: 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 ED EXAM, GENERAL - Physical Exam Exam: See Below (see dictation) Course - Vital Signs Last Recorded V/S: Last Vital Signs Temp 97 F 08/19/19 19:32 Pulse 111 H 08/19/19 20:30 Resp 22 H 08/19/19 20:30 BP 127/69 08/19/19 20:30 Pulse Ox 95 08/19/19 20:30 - Orders/Labs/Meds Orders: Active Orders 24 hr Category Date Time Status EKG Documentation Completion [RC] STAT Care 08/19/19 19:37 Active RT Aerosol Therapy [RC] ASDIRECTED Care 08/19/19 19:54 Active RT Aerosol Therapy [RC] ASDIRECTED Care 08/19/19 19:58 Active Sodium Chloride 0.9% [Saline Flush] Med 08/19/19 19:37 Active 10 ml FLUSH ASDIRECTED PRN Sodium Chloride 0.9% [Saline Flush] Med 08/19/19 19:37 Active 2.5 ml FLUSH ASDIRECTED PRN Saline Lock Insert [OM.PC] Stat Oth 08/19/19 19:37 Ordered Medication Orders Sodium Chloride (Saline Flush) 10 ml FLUSH ASDIRECTED PRN PRN Reason: Keep Vein Open Sodium Chloride (Saline Flush) 2.5 ml FLUSH ASDIRECTED PRN PRN Reason: Keep Vein Open Labs: Laboratory Tests 08/19/19 08/19/19 Range/Units 19:45 19:45 WBC 17.13 H (4.0-11.0) K/uL RBC 4.86 (4.30-5.90) M/uL Hgb 13.5 (12.0-16.0) g/dL Hct 42.5 (36.0-46.0) % MCV 87.4 (80.0-98.0) fL MCH 27.8 (27.0-32.0) pg MCHC 31.8 (31.0-37.0) g/dL RDW Std Deviation 46.2 (28.0-62.0) fl RDW Coeff of Robinson 15 (11.0-15.0) % Plt Count 356 (150-400) K/uL MPV 10.40 (7.40-12.00) fL Neut % (Auto) 78.4 (48.0-80.0) % Lymph % (Auto) 13.5 L (16.0-40.0) % Barton % (Auto) 8.0 (0.0-15.0) % Eos % (Auto) 0.1 (0.0-7.0) % Baso % (Auto) 0.0 (0.0-1.5) % Neut # (Auto) 13.4 H (1.4-5.7) K/uL Lymph # (Auto) 2.3 (0.6-2.4) K/uL Barton # (Auto) 1.4 H (0.0-0.8) K/uL Eos # (Auto) 0.0 (0.0-0.7) K/uL Baso # (Auto) 0.0 (0.0-0.1) K/uL Nucleated RBC % 0.0 /100WBC Nucleated RBCs # 0 K/uL Sodium 144 (136-145) mmol/L Potassium 3.6 (3.5-5.1) mmol/L Chloride 105 (98-107) mmol/L Carbon Dioxide 26.4 (21.0-32.0) mmol/L BUN 22 H (7.0-18.0) mg/dL Creatinine 1.2 H (0.6-1.0) mg/dL Est Cr Clr Drug Dosing 36.75 mL/min Estimated GFR (MDRD) 52.8 ml/min Glucose 150 H (74-106) mg/dL Calcium 8.5 (8.5-10.1) mg/dL Total Bilirubin 0.3 (0.2-1.0) mg/dL AST 25 (15-37) IU/L ALT 32 (14-63) IU/L Alkaline Phosphatase 76 (46-116) U/L Total Protein 6.9 (6.4-8.2) g/dL Albumin 3.5 (3.4-5.0) g/dL Globulin 3.4 (2.6-4.0) g/dL Albumin/Globulin Ratio 1.0 (0.9-1.6) Meds: Medications Generic Name Dose Route Start Last Admin Trade Name Freq PRN Reason Stop Dose Admin Sodium Chloride 10 ml 08/19/19 19:37 Saline Flush FLUSH ASDIRECTED PRN Keep Vein Open Sodium Chloride 2.5 ml 08/19/19 19:37 Saline Flush FLUSH ASDIRECTED PRN Keep Vein Open Discontinued Medications Generic Name Dose Route Start Last Admin Trade Name Freq PRN Reason Stop Dose Admin Albuterol/Ipratropium Confirm 08/19/19 19:37 08/19/19 19:58 Duoneb 3.0-0.5 Mg/3 Ml Administered 08/19/19 19:38 Not Given Dose 3 ml .ROUTE .STK-MED ONE Albuterol/Ipratropium 3 ml 08/19/19 19:54 08/19/19 19:58 Duoneb 3.0-0.5 Mg/3 Ml NEB 08/19/19 19:55 3 ml ONETIME ONE Administration Albuterol/Ipratropium 3 ml 08/19/19 19:57 08/19/19 19:59 Duoneb 3.0-0.5 Mg/3 Ml NEB 08/19/19 19:58 3 ml ONETIME ONE Administration Methylprednisolone Sodium Succinate 125 mg 08/19/19 19:54 08/19/19 19:59 Solu-Medrol IVPUSH 08/19/19 19:55 125 mg ONETIME ONE Administration Departure - Departure Time of Disposition: 20:40 Disposition: Home, Self-Care 01 Condition: Good Clinical Impression: COPD exacerbation - Discharge Information Referrals: PCP,None [Primary Care Provider] - Forms: ED Department Discharge Additional Instructions: The following information is given to patients seen in the emergency department who are being discharged to home. This information is to outline your options for follow-up care. We provide all patients seen in our emergency department with a follow-up referral. The need for follow-up, as well as the timing and circumstances, are variable depending upon the specifics of your emergency department visit. If you don't have a primary care physician on staff, we will provide you with a referral. We always advise you to contact your personal physician following an emergency department visit to inform them of the circumstance of the visit and for follow-up with them and/or the need for any referrals to a consulting specialist. The emergency department will also refer you to a specialist when appropriate. This referral assures that you have the opportunity for follow-up care with a specialist. All of these measure are taken in an effort to provide you with optimal care, which includes your follow-up. Under all circumstances we always encourage you to contact your private physician who remains a resource for coordinating your care. When calling for follow-up care, please make the office aware that this follow-up is from your recent emergency room visit. If for any reason you are refused follow-up, please contact the [facility] Emergency Department at and asked to speak to the emergency department charge nurse. [facility] [address] [place] [address] [id number] [address] [id number] Continue medications and use inhalers instructed Follow-up with primary care provider Return to ED as needed as discussed - My Orders Last 24 Hours: My Active Orders 08/19/19 19:37 EKG Documentation Completion [RC] STAT Sodium Chloride 0.9% [Saline Flush] 10 ml FLUSH ASDIRECTED PRN Sodium Chloride 0.9% [Saline Flush] 2.5 ml FLUSH ASDIRECTED PRN Saline Lock Insert [OM.PC] Stat 08/19/19 19:54 RT Aerosol Therapy [RC] ASDIRECTED 08/19/19 19:58 RT Aerosol Therapy [RC] ASDIRECTED - Assessment/Plan Last 24 Hours: My Active Orders 08/19/19 19:37 EKG Documentation Completion [RC] STAT Sodium Chloride 0.9% [Saline Flush] 10 ml FLUSH ASDIRECTED PRN Sodium Chloride 0.9% [Saline Flush] 2.5 ml FLUSH ASDIRECTED PRN Saline Lock Insert [OM.PC] Stat 08/19/19 19:54 RT Aerosol Therapy [RC] ASDIRECTED 08/19/19 19:58 RT Aerosol Therapy [RC] ASDIRECTED
[2019-08-19] MEDS ORDERED: Albuterol/Ipratropium 3.0-0.5 MG/3 ML Neb Soln NEB ONE ×2 (19:54→19:57)
[2019-08-19] MEDS ORDERED: methylPREDNISolone Sodium Succinate 125 MG/2 ML SDV IVPUSH ONE (19:54)
[2019-08-19 20:17] LABS: CARBON DIOXIDE,CO2 26.4 mmol/L (21.0-32.0); POTASSIUM,K 3.6 mmol/L (3.5-5.1)
--- NOTE | 2019-08-19 20:23 | CR ---
HISTORY: Dyspnea and chest pain. TECHNIQUE: One view of the chest. COMPARISON: 08/17/2019. FINDINGS: Cardiac size is within normal limits. There is no pulmonary vascular congestion. No acute lung infiltrate or pulmonary edema. No pneumothorax or pleural effusion. IMPRESSION: No acute disease. Dictated by Cam Guajardo MD @ 08/19/2019 8:21:02 PM Dictated by: Cam Guajardo MD @ 08/19/2019 20:21:44 (Electronically Signed)
== END 2019-08-19 20:55 | disposition home or self-care (01) ==
LOC: MW.ED 19:32
DX: J44.1 Chronic obstructive pulmonary disease with (acute) exacerbation (principal); I11.0 Hypertensive heart disease with heart failure; I50.9 Heart failure, unspecified; E03.9 Hypothyroidism, unspecified; Z79.51 Long term (current) use of inhaled steroids; Z79.52 Long term (current) use of systemic steroids; Z79.890 Hormone replacement therapy; Z79.899 Other long term (current) drug therapy; Z88.1 Allergy status to other antibiotic agents; Z88.2 Allergy status to sulfonamides
CPT/HCPCS: 36415; 71045; 80053; 85025; 93005; 94640; 96374; 99285; J2930; J7620-GY

== ENCOUNTER 2019-10-16 07:14 | Emergency (ER) | payer MEDICARE, MEDICAID ==
[2019-10-16] MEDS ORDERED: Acetaminophen 325 MG Tab PO ONE (07:55)
[2019-10-16] MEDS ORDERED: Cyclobenzaprine 10 MG Tab PO ONE (07:55)
--- NOTE | 2019-10-16 08:04 | EDM.PDOC ---
ED [facility] GENERAL MEDICAL PROBLEM - General Chief Complaint: Back Pain or Injury Stated Complaint: BACK PAIN Time Seen by Provider: 10/16/19 08:01 Source of Information: Reports: Patient History Limitations: Reports: No Limitations - History of Present Illness INITIAL COMMENTS - FREE TEXT/NARRATIVE: Patient is a 79-year-old female with past medical history of COPD, A. fib on Eliquis, chronic low back pain presenting with a chief complaint of exacerbation of her low back pain. Patient states she is recently moved here from [place] approximately 2 months ago. Patient states that while she was in [place] she was following with pain management and getting injections frequently in her back to help relieve the pain. Patient notes that the pain worsened yesterday however was same and quality and location. Patient had no traumatic injuries and no specific movements that seem to have exacerbated. Patient reports gradual increase in the level of pain. Pain is isolated to the low back and does not radiate. Patient denies any saddle paresthesias. Patient denies any lower extremity weakness. Patient denies fevers. Patient does report urinary incontinence which is been progressively getting worse over the past few weeks. The urinary incontinence is associated with urgency and occurs primarily with coughing or sneezing. In addition to that documented in the HPI above, the additional ROS was obtained : Constitutional: Denies fevers or chills Eyes: Denies vision changes ENMT: Denies sore throat CV: Denies chest pain Resp: Denies SOB GI: Denies vomiting or diarrhea : Denies painful urination MSK: Denies recent trauma Skin: Denies new rashes Neuro: Denies new numbness or tingling or weakness Endocrine: Denies unexpected weight loss Heme: Denies bleeding disorders I have reviewed the triage vital signs Const: Well nourished, well developed, appears stated age Eyes: PERRL, no conjunctival injection HENT: NCAT, Neck supple without meningismus CV: RRR, Warm, well-perfused extremities RESP: CTAB, Unlabored respiratory effort GI: soft, non-tender, non-distended, no masses MSK: No midline spinal tenderness noted. Patient has tenderness palpation around the sacroiliac region with right greater than left. No gross deformities appreciated Skin: Warm, dry. 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 Sensation and motor function of extremities grossly intact. Psych: Appropriate mood and affect Assessment and plan: Patient is a 79-year-old female presenting with acute on chronic low back pain. Patient not taking any pain medications at home. Patient be given pain medications here. Differential diagnosis considered was broad however I do not believe this is related to renal colic, cauda equina, epidural abscess. Based on the history and exam. Patient be given pain medications and reassess. Patient's alert lady has improved pain after administration of Flexeril and Tylenol. Patient given red flags when to return to the emergency department. Patient given information regarding pain management for chronic pain and [place]. All questions addressed and answered. Lower Back Pain Score (Numeric/FACES): 8 - Related Data Allergies Allergy/AdvReac Type Severity Reaction Status Date / Time cephalexin [From Keflex] Allergy Hives Verified 10/16/19 07:29 Sulfa (Sulfonamide Allergy Hives Verified 10/16/19 07:29 Antibiotics) Home Meds: Home Meds Acyclovir 400 mg PO DAILY 08/17/19 [History] Apixaban [Eliquis] 5 mg PO BID 08/17/19 [History] Furosemide [Lasix] 80 mg PO BID 08/17/19 [History] Gabapentin [Neurontin] 100 mg PO QAM 08/17/19 [History] Gabapentin [Neurontin] 300 mg PO BEDTIME 08/17/19 [History] Levothyroxine 125 mcg PO ACBREAKFAST 08/17/19 [History] Liraglutide [Victoza] 1.8 mg SUBCUT DAILY 08/17/19 [History] Meloxicam [Mobic] 7.5 mg PO BID 08/17/19 [History] Montelukast [Singulair] 10 mg PO DAILY 08/17/19 [History] Nystatin [Nystop] 60 gm TP BID PRN 08/17/19 [History] Potassium Chloride 32 meq PO BID 08/17/19 [History] Simvastatin 20 mg PO BEDTIME 08/17/19 [History] allopurinoL [Zyloprim] 100 mg PO DAILY 08/17/19 [History] amLODIPine [Norvasc] 5 mg PO DAILY 08/17/19 [History] metFORMIN [Glucophage XR] 500 mg PO BIDMEALS 08/17/19 [History] Albuterol [Ventolin HFA] 1 puff INH Q4H PRN #1 puff 08/18/19 [Rx] predniSONE [Prednisone] 50 mg PO DAILY #5 tablet 08/18/19 [Rx] Cholecalciferol (Vitamin D3) [Vitamin D3] 5,000 unit PO DAILY 10/16/19 [History] Past Medical History HEENT History: Reports: Cataract Cardiovascular History: Reports: Heart Failure, Hypertension Respiratory History: Reports: COPD 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: Musculoskeletal History: Reports: Back Pain, Chronic Neurological History: Reports: None Psychiatric History: Reports: None Endocrine/Metabolic History: Reports: Diabetes, Type II, Hypothyroidism Hematologic History: Reports: None Immunologic History: Reports: None Oncologic (Cancer) History: Reports: None Dermatologic History: Reports: None - Infectious Disease History Infectious Disease History: Reports: Chicken Pox, Measles - Past Surgical History Head Surgeries/Procedures: Reports: None HEENT Surgical History: Reports: Tonsillectomy Cardiovascular Surgical History: Reports: Cardiac Ablation GI Surgical History: Reports: Cholecystectomy Female Surgical History: Reports: Hysterectomy Musculoskeletal Surgical History: Reports: Other (See Below) Other Musculoskeletal Surgeries/Procedures:: Left knee Social & Family History - Family History Family Medical History: Noncontributory - Tobacco Use Smoking Status *Q: Never Smoker Second Hand Smoke Exposure: Yes - Caffeine Use Caffeine Use: Reports: None - Recreational Drug Use Recreational Drug Use: No ED ROS GENERAL - Review of Systems Review Of Systems: See Below ED EXAM,LOWER BACK PAIN/INJURY - Physical Exam Exam: See Below Course - Vital Signs Last Recorded V/S: Last Vital Signs Temp 36.7 C 10/16/19 07:30 Pulse 74 10/16/19 07:30 Resp 16 10/16/19 07:30 BP 138/57 L 10/16/19 07:30 Pulse Ox 95 10/16/19 07:30 - Orders/Labs/Meds Meds: Medications Discontinued Medications Generic Name Dose Route Start Last Admin Trade Name Freq PRN Reason Stop Dose Admin Acetaminophen 650 mg 10/16/19 07:55 10/16/19 08:08 Tylenol PO 10/16/19 07:56 650 mg NOW ONE Administration Cyclobenzaprine HCl 10 mg 10/16/19 07:55 10/16/19 08:09 Flexeril PO 10/16/19 07:56 10 mg ONETIME ONE Administration Departure - Departure Time of Disposition: 08:43 Disposition: Home, Self-Care 01 Clinical Impression: Low back pain - Discharge Information Referrals: PCP,None [Primary Care Provider] - Forms: ED Department Discharge Additional Instructions: The following information is given to patients seen in the emergency department who are being discharged to home. This information is to outline your options for follow-up care. We provide all patients seen in our emergency department with a follow-up referral. The need for follow-up, as well as the timing and circumstances, are variable depending upon the specifics of your emergency department visit. If you don't have a primary care physician on staff, we will provide you with a referral. We always advise you to contact your personal physician following an emergency department visit to inform them of the circumstance of the visit and for follow-up with them and/or the need for any referrals to a consulting specialist. The emergency department will also refer you to a specialist when appropriate. This referral assures that you have the opportunity for follow-up care with a specialist. All of these measure are taken in an effort to provide you with optimal care, which includes your follow-up. Under all circumstances we always encourage you to contact your private physician who remains a resource for coordinating your care. When calling for follow-up care, please make the office aware that this follow-up is from your recent emergency room visit. If for any reason you are refused follow-up, please contact the [facility] Emergency Department at and asked to speak to the emergency department charge nurse. Sepsis Event Note - Evaluation Sepsis Screening Result: No Definite Risk - Focused Exam Vital Signs: Vital Signs Temp Pulse Resp BP Pulse Ox 10/16/19 07:30 36.7 C 74 16 138/57 L 95 Date Exam was Performed: 10/16/19 Time Exam was Performed: 08:42
== END 2019-10-16 09:15 | disposition home or self-care (01) ==
LOC: MW.ED 07:14
DX: M54.5 Low back pain (principal); G89.29 Other chronic pain; I11.0 Hypertensive heart disease with heart failure; I50.9 Heart failure, unspecified; J44.9 Chronic obstructive pulmonary disease, unspecified; E11.9 Type 2 diabetes mellitus without complications; E03.9 Hypothyroidism, unspecified; Z77.22 Contact with and (suspected) exposure to environmental tobacco smoke (acute) (chronic); Z88.2 Allergy status to sulfonamides; Z88.1 Allergy status to other antibiotic agents; Z79.01 Long term (current) use of anticoagulants; Z79.84 Long term (current) use of oral hypoglycemic drugs; Z79.899 Other long term (current) drug therapy
CPT/HCPCS: 99283; A9270

== ENCOUNTER 2019-11-02 20:02 | Emergency (ER) | payer MEDICARE, MEDICAID ==
[2019-11-02] MEDS ORDERED: Albuterol/Ipratropium 3.0-0.5 MG/3 ML Neb Soln ONE (20:14)
[2019-11-02] MEDS ORDERED: Dexamethasone 4 MG Tab PO ONE (20:43)
[2019-11-02] MEDS ORDERED: Benzonatate 100 MG Cap PO ONE (20:43)
[2019-11-02] MEDS ORDERED: Albuterol 0.5% 5 MG/ML Neb Soln 20 ML Bottle NEB ONE (20:44)
[2019-11-02] MEDS ORDERED: Azithromycin 250 MG Tab PO SCH (20:45)
[2019-11-02 21:08] LABS: BLOOD UREA NITROGEN,BUN 10 mg/dL (7.0-18.0); CARBON DIOXIDE,CO2 31.3 mmol/L (21.0-32.0); CHLORIDE,CL 104 mmol/L (98-107); GLUCOSE RANDOM 114 mg/dL (74-106); POTASSIUM,K 3.3 mmol/L (3.5-5.1); SODIUM,NA 144 mmol/L (136-145)
--- NOTE | 2019-11-02 21:10 | CR ---
Chest: 2 views of the chest were obtained. Comparison: Prior chest x-ray of 08/19/19. Heart size is normal. Tortuous thoracic aorta is seen. Lungs show no acute parenchymal change. Bony structures are osteopenic. Impression: 1. Nothing acute is seen on AP and lateral chest x-ray. Diagnostic code #2 This report was dictated in [place] Standard Time
--- NOTE | 2019-11-02 21:17 | EDM.PDOC ---
ED HPI GENERAL MEDICAL PROBLEM - General Chief Complaint: Respiratory Problem Stated Complaint: COUGHING,HARD TIME BREATHING Time Seen by Provider: 11/02/19 20:29 - History of Present Illness INITIAL COMMENTS - FREE TEXT/NARRATIVE: HPI 79-year-old female with a history of COPD presents for evaluation of 2 days of worsening coughing, wheezing, and shortness of breath. Denies fevers, or significant change in sputum production. No chest pain. * PE risk factors: denies history of DVT or PE, recent immobilization, leg trauma, estrogen use, surgery in the last four weeks, hemoptysis, or malignancy in the last 6 months. Patient is on long-term NOAC. * Inhaler(s): albuterol. * CHF: denies weight gain, orthopnea, and notes compliance with diuretic use. Triage note: AOx4, states chest heaviness & cough for 2days with chronic SOB. M/S/F/SocHx notable for: COPD, low back pain, hypothyroidism, CHF (inferred from Lasix use), anticoagulation on Apixiban; remainder reviewed with patient and in chart. ROS: Negative constitutional, eye, cardiovascular, pulmonary, GI, , MSK, skin , neurologic, psychiatric, endocrine unless noted in the HPI. Exam HR 90, RR 24, BP 169/68, T 36.6C, SaO2 90% at 8:20 PM. Gen: Pleasant, non-toxic appearing, not in extremis. HEENT: NC, AT, PEERL, EOMI, trachea midline. Resp: Diffuse expiratory wheezing throughout all lung jose, minimally increased work of breathing. Card: RRR with no M/R/G, no crackles in lung bases, no pedal edema, no JVD appreciated. GI: Non-tender to palpation throughout all quadrants, no rebound or guarding. MSK: No chest wall TTP. No visible deformities, strength and tone WNL. Skin: Normal color with no visible lesions. Neuro: alert and oriented 3, no facial asymmetry, vision and hearing WNL. Psych: Mood and affect appropriate. Labs / Imaging (pertinent): WBC 9.48, HB 14.0, sodium 144, potassium 3.3, troponin <0.050. CXR: nothing acute is seen on a PA and lateral chest x-ray. EKG: SR at 92 bpm, no CT segment depressions, no new ST segment changes, new LBBB, or T-wave changes that would suggest acute ischemia. MDM Previous chart, nursing note, and vitals reviewed. A: 79-year-old female with a history of COPD presents for evaluation of 2 days of worsening coughing, wheezing, and shortness of breath. DDx: COPD exacerbation, pneumonia, bronchitis, pneumothorax, anxiety, PE, CHF exacerbation, pleural effusion, pericardial effusion, ACS. Evaluation: * COPD exacerbation - known history along with today's presentation (increased WOB with wheezing throughout all lung jose) most consistent with COPD exacerbation. * Pneumonia - as the CXR is without focal infiltrate and the patient is afebrile and without significant sputum production, doubt pneumonia. * Bronchitis - doubt given the lack of productive cough or systemic symptoms. * Pneumothorax - no evidence by CXR. * Anxiety - patient clinically without evidence of appreciable anxiety on exam. * PE - low clinical suspicion given history and alternate diagnosis, further risk stratification (e.g.) Well's not indicated. * CHF - no evidence by CXR, auscultation, or physical exam. * Pleural effusion - CXR without evidence of effusions. * Pericardial effusion - doubt pericardial effusion given an alternate diagnosis , the lack of cardiomegaly on CXR and normal heart sounds. * ACS - doubt ACS given a non-ischemic EKG and a negative troponin greater than six hours from maximal symptom onset. ED Course: Given 1 duoneb, 16 mg dexamethasone, albuterol nebulizer, Tessalon Perles and 500 mg Azithromycin. Disposition: Discharged with rx for 40 mg prednisone x 4 days, Tessalon Perles, and Azithromycin Impression: COPD exacerbation. - Related Data Allergies Allergy/AdvReac Type Severity Reaction Status Date / Time cephalexin [From Keflex] Allergy Hives Verified 11/02/19 20:24 Sulfa (Sulfonamide Allergy Hives Verified 11/02/19 20:24 Antibiotics) Home Meds: Home Meds Acyclovir 400 mg PO DAILY 08/17/19 [History] Apixaban [Eliquis] 5 mg PO BID 08/17/19 [History] Furosemide [Lasix] 80 mg PO BID 08/17/19 [History] Gabapentin [Neurontin] 100 mg PO QAM 08/17/19 [History] Gabapentin [Neurontin] 300 mg PO BEDTIME 08/17/19 [History] Levothyroxine 125 mcg PO ACBREAKFAST 08/17/19 [History] Liraglutide [Victoza] 1.8 mg SUBCUT DAILY 08/17/19 [History] Meloxicam [Mobic] 7.5 mg PO BID 08/17/19 [History] Montelukast [Singulair] 10 mg PO DAILY 08/17/19 [History] Nystatin [Nystop] 60 gm TP BID PRN 08/17/19 [History] Potassium Chloride 32 meq PO BID 08/17/19 [History] Simvastatin 20 mg PO BEDTIME 08/17/19 [History] allopurinoL [Zyloprim] 100 mg PO DAILY 08/17/19 [History] amLODIPine [Norvasc] 5 mg PO DAILY 08/17/19 [History] metFORMIN [Glucophage XR] 500 mg PO BIDMEALS 08/17/19 [History] Albuterol [Ventolin HFA] 1 puff INH Q4H PRN #1 puff 08/18/19 [Rx] predniSONE [Prednisone] 50 mg PO DAILY #5 tablet 08/18/19 [Rx] Cholecalciferol (Vitamin D3) [Vitamin D3] 5,000 unit PO DAILY 10/16/19 [History] Cyclobenzaprine [Flexeril] 10 mg PO DAILY #30 tab 10/16/19 [Rx] Azithromycin 250 mg PO DAILY #4 tablet 11/02/19 [Rx] Benzonatate [Tessalon Perle] 100 mg PO TID #20 capsule 11/02/19 [Rx] predniSONE [Prednisone] 40 mg PO DAILY #8 tablet 11/02/19 [Rx] Past Medical History HEENT History: Reports: Cataract Cardiovascular History: Reports: Heart Failure, Hypertension Respiratory History: Reports: COPD Gastrointestinal History: Reports: None Genitourinary History: Reports: None 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: Musculoskeletal History: Reports: Back Pain, Chronic Neurological History: Reports: None Psychiatric History: Reports: None Endocrine/Metabolic History: Reports: Diabetes, Type II, Hypothyroidism Insulin Pump Model and Superior Court Judge: None Hematologic History: Reports: None Immunologic History: Reports: None Oncologic (Cancer) History: Reports: None Dermatologic History: Reports: None - Infectious Disease History Infectious Disease History: Reports: Chicken Pox, Measles - Past Surgical History Head Surgeries/Procedures: Reports: None HEENT Surgical History: Reports: Tonsillectomy Cardiovascular Surgical History: Reports: Cardiac Ablation GI Surgical History: Reports: Cholecystectomy Female Surgical History: Reports: Hysterectomy Musculoskeletal Surgical History: Reports: Other (See Below) Other Musculoskeletal Surgeries/Procedures:: Left knee Social & Family History - Family History Family Medical History: Noncontributory - Tobacco Use Smoking Status *Q: Never Smoker - Caffeine Use Caffeine Use: Reports: None - Recreational Drug Use Recreational Drug Use: No ED ROS GENERAL - Review of Systems Review Of Systems: See Below ED EXAM, GENERAL - Physical Exam Exam: See Below Course - Vital Signs Last Recorded V/S: Last Vital Signs Temp 36.6 C 11/02/19 20:20 Pulse 90 11/02/19 20:20 Resp 24 H 11/02/19 20:20 BP 169/68 H 11/02/19 20:20 Pulse Ox 90 L 11/02/19 20:20 - Orders/Labs/Meds Orders: Active Orders 24 hr Category Date Time Status EKG 12 Lead [EKG Documentation Completion] [RC] STAT Care 11/02/19 20:33 Active RT Aerosol Therapy [RC] ASDIRECTED Care 11/02/19 20:45 Active Azithromycin [Zithromax] Med 11/02/19 20:45 Active 500 mg PO Q24H Medication Orders Azithromycin (Zithromax) 500 mg PO Q24H BAKARI Last Admin: 11/02/19 20:59 Dose: 500 mg Labs: Laboratory Tests 11/02/19 11/02/19 Range/Units 20:40 20:40 WBC 9.48 (4.0-11.0) K/uL RBC 5.12 (4.30-5.90) M/uL Hgb 14.0 (12.0-16.0) g/dL Hct 44.3 (36.0-46.0) % MCV 86.5 (80.0-98.0) fL MCH 27.3 (27.0-32.0) pg MCHC 31.6 (31.0-37.0) g/dL RDW Std Deviation 50.3 (28.0-62.0) fl RDW Coeff of Robinson 16 H (11.0-15.0) % Plt Count 319 (150-400) K/uL MPV 10.10 (7.40-12.00) fL Neut % (Auto) 49.0 (48.0-80.0) % Lymph % (Auto) 40.9 H (16.0-40.0) % [place] % (Auto) 8.0 (0.0-15.0) % Eos % (Auto) 1.9 (0.0-7.0) % Baso % (Auto) 0.2 (0.0-1.5) % Neut # (Auto) 4.6 (1.4-5.7) K/uL Lymph # (Auto) 3.9 H (0.6-2.4) K/uL [place] # (Auto) 0.8 (0.0-0.8) K/uL Eos # (Auto) 0.2 (0.0-0.7) K/uL Baso # (Auto) 0.0 (0.0-0.1) K/uL Nucleated RBC % 0.0 /100WBC Nucleated RBCs # 0 K/uL Sodium 144 (136-145) mmol/L Potassium 3.3 L (3.5-5.1) mmol/L Chloride 104 (98-107) mmol/L Carbon Dioxide 31.3 (21.0-32.0) mmol/L BUN 10 (7.0-18.0) mg/dL Creatinine 0.8 (0.6-1.0) mg/dL Est Cr Clr Drug Dosing 55.13 mL/min Estimated GFR (MDRD) > 60.0 ml/min Glucose 114 H (74-106) mg/dL Calcium 9.5 (8.5-10.1) mg/dL Troponin I < 0.050 (0.000-0.056) ng/mL Meds: Medications Generic Name Dose Route Start Last Admin Trade Name Freq PRN Reason Stop Dose Admin Azithromycin 500 mg 11/02/19 20:45 11/02/19 20:59 Zithromax PO 500 mg Q24H BAKARI Administration Discontinued Medications Generic Name Dose Route Start Last Admin Trade Name Freq PRN Reason Stop Dose Admin Albuterol 5 mg 11/02/19 20:44 11/02/19 21:07 Proventil Neb Soln NEB 11/02/19 20:45 5 mg ONETIME ONE Administration Albuterol/Ipratropium Confirm 11/02/19 20:14 11/02/19 21:02 Duoneb 3.0-0.5 Mg/3 Ml Administered 02/06/20 20:15 3 ml Dose Administration 3 ml .ROUTE .STK-MED ONE Benzonatate 200 mg 11/02/19 20:43 11/02/19 21:00 Tessalon Perles PO 11/02/19 20:44 200 mg ONETIME ONE Administration Dexamethasone 16 mg 11/02/19 20:43 11/02/19 20:59 Dexamethasone PO 11/02/19 20:44 16 mg ONETIME ONE Administration Departure - Departure Time of Disposition: 21:15 Disposition: Home, Self-Care 01 Clinical Impression: COPD exacerbation - Discharge Information Prescriptions: Azithromycin 250 mg PO DAILY #4 tablet Benzonatate [Tessalon Perle] 100 mg PO TID #20 capsule predniSONE [Prednisone] 40 mg PO DAILY #8 tablet Additional Instructions: You were in seen in the [facility] Emergency Department for evaluation of a COPD exacerbation. Please read and follow all of the instructions below. Please follow up with your primary care physician within 24 to 48 hours for repeat evaluation and further care. When calling for follow-up care, please make the office aware that this follow-up is from your recent emergency room visit. If for any reason you are refused follow-up, please contact the [facility] Emergency Department at and asked to speak to the emergency department charge nurse. Your care today was limited to identifying and treating emergent medical problems only. Many people have subtle differences in their test results that require follow up with their outpatient physician(s) to correctly determine if this represents a normal variation or concerning abnormality with respect to your specific health. The care given to you today was limited to identifying and treating emergent medical problems - you need to request a copy of all of your medical records from today's visit and follow up with your outpatient physician(s) to review both today's visit and your overall health. If you have any new symptoms or if you are at all concerned about your health please return immediately to the emergency department. Prescriptions: If you are uninsured or have financial difficulties with filling your prescription(s), you may consider using a free pharmacy discount service such as [employer] ([employer]) or [employer] ([employer]). These services allow you to search for a medication on your phone (or computer) and obtain a coupon that usually has a significant discount from the list gamble at a pharmacy. Your physician as well as [facility] does not have a financial relationship with either of these services. You may also wish to speak with your physician to determine if lower cost prescriptions are possible. Obtaining primary care: 1. [facility] provides [facility] ([facility]), family medicine (children, adults, and some obstetrical care), and internal medicine (adults). Further specialty care is also available. Same day appointments are available. They may be contacted at [phone] and are open Wednesday through Wednesday 8 AM to 5 PM. The [facility] are located at [facility], [address] [place] [address]. 2. [facility] offers family medicine, internal medicine, womens health, and further specialty care. [facility] may be contacted at [phone]. [facility] is located at [address] [place], [address]. 3. If you have health insurance, please also contact your insurer for a list of accepting providers under your policy, you may contact these providers for further health care. Occupational health: Work related injuries may consider following up with [facility], . Occupational health services are located at [address] [place] [address] and are open Wednesday through Wednesday from 7: 30 am to 5:00 pm. Obstetrical and Gynecological Care: [facility], , Wednesday through Wednesday 8 AM to 5 PM. [address] [place] [address]. Eyecare: If you have an eye injury you should follow up with your comic illustrator or with [facility], at [phone] or [phone] , they are located at [address] [place] [address]. Dental Care Ashok Burrows DDS. [address] [place], [place]. Ph. [phone] Colby Burrows DDS MS. [address] [facility] [address], [place], [place]. Ph. Gerardo Benjamin Engle DDS. 10 09/[address] [place] [address], [place], [place]. Ph. [phone] Bhavesh Martinez DDS. [address] [facility] [address] [place], [place]. Ph. [phone] Calderon Lezama DDS PC. [address] [facility] [address] [place], [place]. Ph. Roscoe Knowles DDS. [address] [facility]. Ph. [phone] [facility]. [address] [place], [place]. Ph. [phone] [facility] [address], [place], [place]. Ph. [phone] [facility] [address] [place] [address]. Ph. [facility]. [address] [place] [address] [address] [place], [place]. Ph. [phone] [facility]. [address], [place], [place]. Ph. [phone] COPD exacerbation. COPD exacerbations occur when a virus, bacteria, or pollution worsens your underlying chronic obstructive pulmonary disease. This is treated with anti- inflammatories (prednisone), bronchodilators (albuterol), and antibiotics. Take the medications as prescribed. Please return to the emergency department if you develop worsening shortness of breath, fevers, chills, chest pain, or are otherwise concerned about your health. If you have diabetes will need to check your blood glucose more frequently because the steroids will increase your blood sugar. Please read the drug information below regarding the medications were prescribed. To reduce the recurrence of COPD exacerbations you should do the following: * If you are smoker, stop smoking. * You should also receive a yearly influenza vaccine and a pneumococcal pneumonia vaccine every 5 years. Azithromycin: This is an antibiotic that will help reduce the amount of bacteria in your lungs , it will also reduce the amount of inflammation in your lungs. AZITHROMYCIN SIDE EFFECTS: Stomach upset, diarrhea/loose stools, nausea, vomiting, or abdominal pain may occur. If any of these effects persist or worsen, tell your doctor or pharmacist promptly. Tell your doctor right away if any of these unlikely but serious side effects occur: hearing changes (such as decreased hearing, deafness), eye problems (such as drooping eyelids, blurred vision), difficulty speaking/ swallowing, muscle weakness, signs of liver problems (such as unusual tiredness , persistent nausea/vomiting, severe stomach/abdominal pain, yellowing eyes/skin , dark urine). Get medical help right away if any of these rare but serious side effects occur: fast/irregular heartbeat, severe dizziness, fainting. This medication may rarely cause a severe intestinal condition (Clostridium difficile-associated diarrhea) due to a resistant bacteria. This condition may occur during treatment or weeks to months after treatment has stopped. Do not use anti-diarrhea products or narcotic pain medications if you have any of the following symptoms because these products may make them worse. Tell your doctor right away if you develop: persistent diarrhea, abdominal or stomach pain/ cramping, blood/mucus in your stool. Use of this medication for prolonged or repeated periods may result in oral thrush or a new yeast infection. Contact your doctor if you notice white patches in your mouth, a change in vaginal discharge, or other new symptoms. A very serious allergic reaction to this drug is rare. However, get medical help right away if you notice any symptoms of a serious allergic reaction, including: rash, itching/swelling (especially of the face/tongue/throat), severe dizziness, trouble breathing. An allergic reaction to this medication may return even if you stop the drug. If you have an allergic reaction, continue to watch for any of the above symptoms for several days after your last dose. This is not a complete list of possible side effects. If you notice other effects not listed above, contact your doctor or pharmacist. Azithromycin may cause a condition that affects the heart rhythm (QT prolongation). QT prolongation can rarely cause serious (rarely fatal) fast/ irregular heartbeat and other symptoms (such as severe dizziness, fainting) that need medical attention right away. The risk of QT prolongation may be increased if you have certain medical conditions or are taking other drugs that may cause QT prolongation. Before using azithromycin, tell your doctor or pharmacist of all the drugs you take and if you have any of the following conditions: certain heart problems (heart failure, slow heartbeat, QT prolongation in the EKG), family history of certain heart problems (QT prolongation in the EKG, sudden cardiac ). Low levels of potassium or magnesium in the blood may also increase your risk of QT prolongation. This risk may increase if you use certain drugs (such as diuretics/"water pills") or if you have conditions such as severe sweating, diarrhea, or vomiting. Talk to your doctor about using azithromycin safely. Many drugs besides azithromycin may affect the heart rhythm (QT prolongation ), including amiodarone, disopyramide, dofetilide, dronedarone, ibutilide, pimozide, procainamide, quinidine, sotalol, among others. This drug passes into breast milk. Consult your doctor before breast- feeding. Although most antibiotics are unlikely to affect hormonal control such as pills, patch, or ring, a few antibiotics (such as rifampin, rifabutin) can decrease their effectiveness. This could result in . If you use hormonal control, ask your doctor or pharmacist for more details. Prednisone: Many people experience no side effects, while others may experience nausea, loss of appetite, or difficulty sleeping. If you have diabetes, check your blood glucose more frequently as this will likely increase your blood glucose. Take this medication by mouth, with food or milk to prevent stomach upset, as directed by your doctor. You may mix the medication in juice or applesauce before taking it. If you are prescribed only one dose per day, take it in the morning before 9 A.M. PREDNISONE SIDE EFFECTS: Nausea, vomiting, loss of appetite, heartburn, trouble sleeping, increased sweating, or acne may occur. If any of these effects persist or worsen, tell your doctor or pharmacist promptly. Tell your doctor right away if any of these unlikely but serious side effects occur: muscle pain/cramps, irregular heartbeat, weakness, swelling hands /ankles/feet, unusual weight gain, signs of infection (such as fever, persistent sore throat), vision problems (such as blurred vision), vomit that looks like coffee grounds, black/bloody stools, severe stomach/abdominal pain, mental/mood changes (such as depression, mood swings, agitation), slow wound healing, thinning skin, bone pain, menstrual period changes, puffy face, seizures, easy bruising/bleeding. This medication may rarely make your blood sugar level rise, which can cause or worsen diabetes. Tell your doctor right away if you develop symptoms of high blood sugar, such as increased thirst and urination. If you already have diabetes, be sure to check your blood sugars regularly. Your doctor may need to adjust your diabetes medication, exercise program, or diet. A very serious allergic reaction to this product is rare. However, get medical help right away if you notice any symptoms of a serious allergic reaction, including: rash, itching/swelling (especially of the face/tongue/ throat), severe dizziness, trouble breathing. This is not a complete list of possible side effects. If you notice other effects not listed above, contact your doctor or pharmacist. Before using this medication, tell your doctor or pharmacist your medical history, especially of: current/past infections (such as fungal infections, tuberculosis, herpes), heart problems (such as heart failure, recent heart attack), high blood pressure, thyroid problems, kidney disease, liver disease, stomach/intestinal problems (such as ulcer, diverticulitis), bone loss ( osteoporosis), mental/mood disorders (such as psychosis, anxiety, depression), eye diseases (such as cataracts, glaucoma), diabetes, mineral imbalance (such as low level of potassium/calcium in the blood), seizures, blood clots, bleeding problems. This medicine may cause stomach bleeding. Daily use of alcohol while using this medicine may increase your risk for stomach bleeding. Limit alcoholic beverages. Consult your doctor or pharmacist for more information. During , this medication should be used only when clearly needed. It may rarely harm an unborn baby. Discuss the risks and benefits with your doctor. Infants born to mothers who have been using this medication for an extended period of time may have hormone problems. Tell your doctor right away if you notice symptoms such as persistent nausea/vomiting, severe diarrhea, or weakness in your . This medication passes into breast milk but is unlikely to harm a nursing infant. Consult your doctor before breast-feeding. Albuterol (Brand Name: Salbutamol) This drug is used to open the airways in lung diseases where spasm may cause breathing problems. Please use this medication as prescribed. Please call your doctor if you are needing to use if more frequently than prescribed. Use your inhaler with a spacer every time. This medication may make you feel jittery and have a faster heart rate. If you have diabetes, please check your blood glucose more frequently as it may be higher. ALBUTEROL WARNING/CAUTION: Even though it may be rare, some people may have very bad and sometimes deadly side effects when taking a drug. Tell your doctor or get medical help right away if you have any of the following signs or symptoms that may be related to a very bad side effect: Signs of an allergic reaction, like rash; hives; itching; red, swollen, blistered, or peeling skin with or without fever; wheezing; tightness in the chest or throat; trouble breathing or talking; unusual hoarseness; or swelling of the mouth, face, lips, tongue, or throat. Signs of low potassium levels like muscle pain or weakness, muscle cramps, or a heartbeat that does not feel normal. If you are not able to get the breathing attack under control. Get help right away. Chest pain or pressure or a fast heartbeat. Very nervous and excitable. Very bad headache. Very bad dizziness or passing out. This drug may sometimes cause very bad breathing problems. This may be life- threatening. When this happens with a puffer (inhaler) or with liquid for breathing in, most of the time it happens right after a dose and after the first use of a new canister or vial of this drug. If you have trouble breathing , breathing that is worse, wheezing, or coughing, get medical help right away. ALBUTEROL WARNING/CAUTION: Even though it may be rare, some people may have very bad and sometimes deadly side effects when taking a drug. Tell your doctor or get medical help right away if you have any of the following signs or symptoms that may be related to a very bad side effect: Signs of an allergic reaction, like rash; hives; itching; red, swollen, blistered, or peeling skin with or without fever; wheezing; tightness in the chest or throat; trouble breathing or talking; unusual hoarseness; or swelling of the mouth, face, lips, tongue, or throat. Signs of low potassium levels like muscle pain or weakness, muscle cramps, or a heartbeat that does not feel normal. If you are not able to get the breathing attack under control. Get help right away. Chest pain or pressure or a fast heartbeat. This drug may sometimes cause very bad breathing problems. This may be life- threatening. When this happens with a puffer (inhaler) or with liquid for breathing in, most of the time it happens right after a dose and after the first use of a new canister or vial of this drug. If you have trouble breathing , breathing that is worse, wheezing, or coughing, get medical help right away. Pain when passing urine. Trouble passing urine. A very bad skin reaction (Barrios-Rickie syndrome/toxic epidermal necrolysis) may happen. It can cause very bad health problems that may not go away, and sometimes . Get medical help right away if you have signs like red, swollen , blistered, or peeling skin (with or without fever); red or irritated eyes; or sores in your mouth, throat, nose, or eyes. Sepsis Event Note - Evaluation Sepsis Screening Result: No Definite Risk - Focused Exam Vital Signs: Vital Signs Temp Pulse Resp BP Pulse Ox 11/02/19 20:20 36.6 C 90 24 H 169/68 H 90 L Date Exam was Performed: 11/02/19 Time Exam was Performed: 21:13 - My Orders Last 24 Hours: My Active Orders 11/02/19 20:33 EKG 12 Lead [EKG Documentation Completion] [RC] STAT 11/02/19 20:45 RT Aerosol Therapy [RC] ASDIRECTED Azithromycin [Zithromax] 500 mg PO Q24H - Assessment/Plan Last 24 Hours: My Active Orders 11/02/19 20:33 EKG 12 Lead [EKG Documentation Completion] [RC] STAT 11/02/19 20:45 RT Aerosol Therapy [RC] ASDIRECTED Azithromycin [Zithromax] 500 mg PO Q24H
== END 2019-11-02 21:39 | disposition home or self-care (01) ==
LOC: MW.ED 20:02
DX: J44.1 Chronic obstructive pulmonary disease with (acute) exacerbation (principal); I10 Essential (primary) hypertension; E11.9 Type 2 diabetes mellitus without complications; E03.9 Hypothyroidism, unspecified; Z79.01 Long term (current) use of anticoagulants; Z79.84 Long term (current) use of oral hypoglycemic drugs; Z79.899 Other long term (current) drug therapy; Z88.2 Allergy status to sulfonamides; Z88.1 Allergy status to other antibiotic agents
CPT/HCPCS: 36415; 71046; 80048; 84484; 85025; 93005; 99285; A9270; J8540; 99283; J7620-GY

== ENCOUNTER 2019-12-11 21:06 | Observation (INO) | payer MEDICARE, MEDICAID, OTHER ==
[2019-12-11] MEDS ORDERED: Levofloxacin/Dextrose 5%-Water 750 MG in Premix Bag 1 BAG IV ONE (23:17)
[2019-12-11] MEDS ORDERED: methylPREDNISolone Sodium Succinate 125 MG/2 ML SDV IVPUSH ONE (23:18)
[2019-12-11] MEDS ORDERED: Albuterol/Ipratropium 3.0-0.5 MG/3 ML Neb Soln NEB ONE (23:18)
--- NOTE | 2019-12-11 23:24 | EDM.PDOC ---
ED HPI GENERAL MEDICAL PROBLEM - General Chief Complaint: Respiratory Problem Stated Complaint: COUGH AND WEAK Time Seen by Provider: 12/11/19 23:05 Source of Information: Reports: Patient History Limitations: Reports: No Limitations - History of Present Illness INITIAL COMMENTS - FREE TEXT/NARRATIVE: HISTORY OF PRESENT ILLNESS: Patient is a 79-year-old female with history of COPD, CHF, sleep apnea who presents to the ER for complaints of cough and shortness of breath with wheezing for the past 2 days. Cough is moist. Denies any hemoptysis. No chest pain or abdominal pain. Has had diarrhea 2 days ago which is now resolved. Has any recent international travel. Is not on home oxygen. Patient uses a CPAP machine. States she has been compliant with her diuretic. Denies any increased swelling from baseline to her lower extremities. Patient is not a smoker but states that she contracted COPD from secondhand smoke. REVIEW OF SYSTEMS: Other than the symptoms associated with the present events, the following is reported with regard to recent health: General: (-) fever. HENT: (-) congestion. Respiratory: (+) cough. Cardiovascular: (-) chest pain. GI: (-) abdominal pain. : (-) urinary complaints. Musculoskeletal: (-) other aches or pains. Endocrine: (-) generalized weakness. Neurological: (-) localized weakness. Skin: (-) rash PAST MEDICAL HISTORY: reviewed as per nursing notes SOCIAL HISTORY: reviewed as per nursing notes, MEDICATIONS: Per nurse's note ALLERGIES: Per nurse's note, reviewed by me PHYSICAL EXAMINATION: GENERALIZED APPEARANCE: well developed, well nourished in mild distress VITAL SIGNS: Per nurse's note, reviewed by me SKIN: Warm, dry; (-) cyanosis; (-) rash. HEAD: (-) scalp swelling, (-) tenderness. EYES: (-) conjunctival pallor, (-) scleral icterus. ENMT: (-) stridor; mucous membranes moist. NECK: (-) tenderness, (-) stiffness, CHEST AND RESPIRATORY: (-) rales, (-) rhonchi, (+) wheezes; breath sounds equal bilaterally. HEART AND CARDIOVASCULAR: (-) irregularity; (-) murmur, (-) gallop. ABDOMEN AND GI: Soft; (-) tenderness, (-) guarding, (-) rebound, (-) palpable masses, EXTREMITIES: (-) deformity, (-) edema. NEURO AND PSYCH: Alert. Cranial nerves grossly intact; strength symmetric. gait steady DIAGNOSTICS: CXR: as read by radiologist, report reviewed by myself EKG: ectopic atrial rhythm at 84 bpm. lad. q waves v1-2. no st elevation. labs ordered and reviewed COVID-19: pending EMERGENCY DEPARTMENT COURSE AND TREATMENT: Patient's condition improved during Emergency Department evaluation. given duoneb, solumedrol 125 mg IV, Levaquin was administered after blood cultures x 2 drawn. Labs and diagnostics reviewed. Patient still with pulse ox of 90 to 92% on room air following DuoNeb x3. She will require admission. Case discussed with Dr. Gooden who kindly agrees to admit. PLAN AND FOLLOW-UP: admit Lower Back Pain Score (Numeric/FACES): 9 - Related Data Allergies Allergy/AdvReac Type Severity Reaction Status Date / Time cephalexin [From Keflex] Allergy Hives Verified 12/12/19 02:55 Sulfa (Sulfonamide Allergy Hives Verified 12/12/19 02:55 Antibiotics) Home Meds: Home Meds Acyclovir 400 mg PO DAILY 08/17/19 [History] Apixaban [Eliquis] 5 mg PO BID 08/17/19 [History] Furosemide [Lasix] 80 mg PO BID 08/17/19 [History] Gabapentin [Neurontin] 100 mg PO QAM 08/17/19 [History] Gabapentin [Neurontin] 300 mg PO BEDTIME 08/17/19 [History] Levothyroxine 125 mcg PO ACBREAKFAST 08/17/19 [History] Liraglutide [Victoza] 1.8 mg SUBCUT DAILY 08/17/19 [History] Meloxicam [Mobic] 7.5 mg PO BID 08/17/19 [History] Montelukast [Singulair] 10 mg PO DAILY 08/17/19 [History] Nystatin [Nystop] 60 gm TP BID PRN 08/17/19 [History] Potassium Chloride 32 meq PO BID 08/17/19 [History] Simvastatin 20 mg PO BEDTIME 08/17/19 [History] allopurinoL [Zyloprim] 100 mg PO DAILY 08/17/19 [History] amLODIPine [Norvasc] 5 mg PO DAILY 08/17/19 [History] metFORMIN [Glucophage XR] 500 mg PO BIDMEALS 08/17/19 [History] Albuterol [Ventolin HFA] 1 puff INH Q4H PRN #1 puff 08/18/19 [Rx] predniSONE [Prednisone] 50 mg PO DAILY #5 tablet 08/18/19 [Rx] Cholecalciferol (Vitamin D3) [Vitamin D3] 5,000 unit PO DAILY 10/16/19 [History] Cyclobenzaprine [Flexeril] 10 mg PO DAILY #30 tab 10/16/19 [Rx] Azithromycin 250 mg PO DAILY #4 tablet 11/02/19 [Rx] Benzonatate [Tessalon Perle] 100 mg PO TID #20 capsule 11/02/19 [Rx] predniSONE [Prednisone] 40 mg PO DAILY #8 tablet 11/02/19 [Rx] Past Medical History HEENT History: Reports: Cataract Cardiovascular History: Reports: Heart Failure, Hypertension Respiratory History: Reports: COPD Gastrointestinal History: Reports: None Genitourinary History: Reports: None 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: Reports: Musculoskeletal History: Reports: Back Pain, Chronic Neurological History: Reports: None Psychiatric History: Reports: None Endocrine/Metabolic History: Reports: Diabetes, Type II, Hypothyroidism Insulin Pump Model and Addiction Social Worker: None Hematologic History: Reports: None Immunologic History: Reports: None Oncologic (Cancer) History: Reports: None Dermatologic History: Reports: None - Infectious Disease History Infectious Disease History: Reports: Chicken Pox, Measles - Past Surgical History Head Surgeries/Procedures: Reports: None HEENT Surgical History: Reports: Tonsillectomy Cardiovascular Surgical History: Reports: Cardiac Ablation GI Surgical History: Reports: Cholecystectomy Female Surgical History: Reports: Hysterectomy Musculoskeletal Surgical History: Reports: Other (See Below) Other Musculoskeletal Surgeries/Procedures:: Left knee Social & Family History - Family History Family Medical History: Noncontributory - Tobacco Use Smoking Status *Q: Never Smoker Second Hand Smoke Exposure: Yes - Caffeine Use Caffeine Use: Reports: None - Recreational Drug Use Recreational Drug Use: No ED ROS GENERAL - Review of Systems Review Of Systems: See Below (see dictation) ED EXAM, GENERAL - Physical Exam Exam: See Below (see dictation) Course - Vital Signs Last Recorded V/S: Last Vital Signs Temp 97.4 F 12/12/19 04:00 Pulse 98 12/12/19 04:00 Resp 18 12/12/19 04:00 BP 132/84 12/12/19 04:00 Pulse Ox 94 L 12/12/19 04:00 - Orders/Labs/Meds Orders: Active Orders 24 hr Category Date Time Status EKG Documentation Completion [RC] STAT Care 12/11/19 23:16 Active RT Aerosol Therapy [RC] ASDIRECTED Care 12/11/19 23:18 Active CORONAVIRUS (COVID-19) PCR [MREF] Stat Lab 12/11/19 23:32 Ordered CULTURE BLOOD [BC] Stat Lab 12/11/19 23:40 Received CULTURE BLOOD [BC] Stat Lab 12/11/19 23:45 Results Blood Culture x2 Reflex Set [OM.PC] Stat Oth 12/11/19 23:16 Ordered Isolation [COMM] Routine Oth 12/11/19 21:21 Active Medication Orders Albuterol/Ipratropium (Duoneb 3.0-0.5 Mg/3 Ml) 3 ml NEB Q6HRRT COUNTS INCLUDE 234 BEDS AT THE [facility] Methylprednisolone Sodium Succinate (Solu-Medrol) 125 mg IVPUSH DAILY COUNTS INCLUDE 234 BEDS AT THE [facility] Labs: Laboratory Tests 12/11/19 12/11/19 12/11/19 Range/Units 23:22 23:22 23:22 WBC 15.87 H (4.0-11.0) K/uL RBC 5.91 H (4.30-5.90) M/uL Hgb 16.4 H (12.0-16.0) g/dL Hct 51.6 H (36.0-46.0) % MCV 87.3 (80.0-98.0) fL MCH 27.7 (27.0-32.0) pg MCHC 31.8 (31.0-37.0) g/dL RDW Std Deviation 48.8 (28.0-62.0) fl RDW Coeff of [place] 15 (11.0-15.0) % Plt Count 388 (150-400) K/uL MPV 10.30 (7.40-12.00) fL Neut % (Auto) 65.3 (48.0-80.0) % Lymph % (Auto) 26.0 (16.0-40.0) % [place] % (Auto) 7.6 (0.0-15.0) % Eos % (Auto) 0.8 (0.0-7.0) % Baso % (Auto) 0.3 (0.0-1.5) % Neut # (Auto) 10.4 H (1.4-5.7) K/uL Lymph # (Auto) 4.1 H (0.6-2.4) K/uL [place] # (Auto) 1.2 H (0.0-0.8) K/uL Eos # (Auto) 0.1 (0.0-0.7) K/uL Baso # (Auto) 0.0 (0.0-0.1) K/uL Nucleated RBC % 0.0 /100WBC Nucleated RBCs # 0 K/uL Lactate 2.0 (0.20-2.00) mmol/L Sodium 143 (136-145) mmol/L Potassium 3.3 L (3.5-5.1) mmol/L Chloride 102 (98-107) mmol/L Carbon Dioxide 32.8 H (21.0-32.0) mmol/L BUN 10 (7.0-18.0) mg/dL Creatinine 1.0 (0.6-1.0) mg/dL Est Cr Clr Drug Dosing 44.10 mL/min Estimated GFR (MDRD) 53.8 ml/min Glucose 106 (74-106) mg/dL Calcium 9.7 (8.5-10.1) mg/dL Troponin I < 0.050 (0.000-0.056) ng/mL B-Natriuretic Peptide (<100) PG/ML 12/11/19 Range/Units 23:22 WBC (4.0-11.0) K/uL RBC (4.30-5.90) M/uL Hgb (12.0-16.0) g/dL Hct (36.0-46.0) % MCV (80.0-98.0) fL MCH (27.0-32.0) pg MCHC (31.0-37.0) g/dL RDW Std Deviation (28.0-62.0) fl RDW Coeff of [place] (11.0-15.0) % Plt Count (150-400) K/uL MPV (7.40-12.00) fL Neut % (Auto) (48.0-80.0) % Lymph % (Auto) (16.0-40.0) % [place] % (Auto) (0.0-15.0) % Eos % (Auto) (0.0-7.0) % Baso % (Auto) (0.0-1.5) % Neut # (Auto) (1.4-5.7) K/uL Lymph # (Auto) (0.6-2.4) K/uL [place] # (Auto) (0.0-0.8) K/uL Eos # (Auto) (0.0-0.7) K/uL Baso # (Auto) (0.0-0.1) K/uL Nucleated RBC % /100WBC Nucleated RBCs # K/uL Lactate (0.20-2.00) mmol/L Sodium (136-145) mmol/L Potassium (3.5-5.1) mmol/L Chloride (98-107) mmol/L Carbon Dioxide (21.0-32.0) mmol/L BUN (7.0-18.0) mg/dL Creatinine (0.6-1.0) mg/dL Est Cr Clr Drug Dosing mL/min Estimated GFR (MDRD) ml/min Glucose (74-106) mg/dL Calcium (8.5-10.1) mg/dL Troponin I (0.000-0.056) ng/mL B-Natriuretic Peptide 6 (<100) PG/ML Meds: Medications Generic Name Dose Route Start Last Admin Trade Name Freq PRN Reason Stop Dose Admin Albuterol/Ipratropium 3 ml 12/12/19 06:00 Duoneb 3.0-0.5 Mg/3 Ml NEB Q6HRRT BAKARI Methylprednisolone Sodium Succinate 125 mg 12/12/19 09:00 Solu-Medrol IVPUSH DAILY BAKARI Discontinued Medications Generic Name Dose Route Start Last Admin Trade Name Freq PRN Reason Stop Dose Admin Albuterol/Ipratropium 9 ml 12/11/19 23:18 12/11/19 23:45 Duoneb 3.0-0.5 Mg/3 Ml NEB 12/11/19 23:19 9 ml ONETIME ONE Administration Levofloxacin/Dextrose 750 mg/ 150 mls @ 100 mls/hr 12/11/19 23:17 12/11/19 23 :48 Premix IV 12/12/19 00:46 100 mls/hr ONETIME ONE Administration Methylprednisolone Sodium Succinate 125 mg 12/11/19 23:18 12/11/19 23:47 Solu-Medrol IVPUSH 12/11/19 23:19 125 mg ONETIME ONE Administration Potassium Chloride 20 meq 12/12/19 00:28 12/12/19 01:35 Klor-Con M20 PO 12/12/19 00:29 20 meq ONETIME ONE Administration Departure - Departure Time of Disposition: 01:35 Disposition: Refer to Observation Clinical Impression: COPD exacerbation - Discharge Information Sepsis Event Note - Evaluation Sepsis Screening Result: No Definite Risk - Focused Exam Vital Signs: Vital Signs Temp Pulse Resp BP Pulse Ox 12/12/19 01:35 97.6 F 104 H 24 H 162/82 H 90 L 12/12/19 01:24 97.1 F 104 H 20 104/83 92 L 12/11/19 23:56 98 22 H 109/73 97 12/11/19 23:04 97.7 F 94 18 103/73 94 L Date Exam was Performed: 12/12/19 Time Exam was Performed: 05:15 - My Orders Last 24 Hours: My Active Orders 12/11/19 23:16 EKG Documentation Completion [RC] STAT Blood Culture x2 Reflex Set [OM.PC] Stat 12/11/19 23:18 RT Aerosol Therapy [RC] ASDIRECTED 12/11/19 23:32 CORONAVIRUS (COVID-19) PCR [MREF] Stat 12/11/19 23:40 CULTURE BLOOD [BC] Stat 12/11/19 23:45 CULTURE BLOOD [BC] Stat - Assessment/Plan Last 24 Hours: My Active Orders 12/11/19 23:16 EKG Documentation Completion [RC] STAT Blood Culture x2 Reflex Set [OM.PC] Stat 12/11/19 23:18 RT Aerosol Therapy [RC] ASDIRECTED 12/11/19 23:32 CORONAVIRUS (COVID-19) PCR [MREF] Stat 12/11/19 23:40 CULTURE BLOOD [BC] Stat 12/11/19 23:45 CULTURE BLOOD [BC] Stat
[2019-12-11 23:51] LABS: BLOOD UREA NITROGEN,BUN 10 mg/dL (7.0-18.0); CARBON DIOXIDE,CO2 32.8 mmol/L (21.0-32.0); CHLORIDE,CL 102 mmol/L (98-107); GLUCOSE RANDOM 106 mg/dL (74-106); POTASSIUM,K 3.3 mmol/L (3.5-5.1); SODIUM,NA 143 mmol/L (136-145)
--- NOTE | 2019-12-11 23:57 | CR ---
INDICATION: prior sent. chest pain. 1 image TECHNIQUE: Chest 1 view. COMPARISON: 11/02/19 FINDINGS: Cardiovascular and mediastinum: Heart size and vasculature are normal in caliber and appearance. Mediastinum is within normal limits. Lungs and pleural space: Lungs are clear. No sign of infiltrate or mass. No sign of pleural effusion. No pneumothorax. Bones and soft tissues: No significant findings. IMPRESSION: Unremarkable chest. Dictated by: Hubert Michelle MD @ 12/11/2019 23:55:24 (Electronically Signed)
[2019-12-12] MEDS ORDERED: Potassium Chloride 20 MEQ Tab.ER PO ONE ×2 (00:28→09:18)
[2019-12-12] MEDS: Albuterol/Ipratropium 3.0-0.5 MG/3 ML Neb Soln NEB SCH ×4 (06:07→23:42)
[2019-12-12] MEDS: Acetaminophen 325 MG Tab PO PRN ×2 (06:26→21:46)
[2019-12-12] MEDS ORDERED: Sodium Chloride 0.9% 2.5 ML Syringe FLUSH PRN (07:55)
[2019-12-12] MEDS ORDERED: Ondansetron 4 MG/2 ML SDV IVPUSH PRN (07:55)
[2019-12-12] MEDS: Gabapentin 100 MG Cap PO SCH (08:44)
[2019-12-12] MEDS: methylPREDNISolone Sodium Succinate 125 MG/2 ML SDV IVPUSH SCH (08:44)
[2019-12-12] MEDS: Insulin Aspart 100 Units/ML 3 ML Pen SUBCUT SCH ×3 (08:52→17:59)
[2019-12-12 09:15] LABS: POTASSIUM,K 3.2 mmol/L (3.5-5.1)
--- NOTE | 2019-12-12 09:18 | PCM.HP.2 ---
H&P History of Present Illness - General Date of Service: 12/12/19 Admit Problem/Dx: Admission Diagnosis/Problem Admission Diagnosis/Problem COPD, Moderate chronic obstructive pulmonary disease Source of Information: Patient History Limitations: Reports: No Limitations - History of Present Illness Initial Comments - Free Text/Narative: This 79 maura old female with pmh of COPD, HTN, Afib s/p ablation 2016 on Eliquis , ZAHRA on CPAP, obesity, DM type 2, and chronic pain presented to the ED with complaints of cough, dyspnea and not feeling well. She reports she started having some difficultly breathing 2 days ago, has felt warm at home and sweating at night. She Denies over fevers, but some chillls. Reports non productive dry cough. No significant sinus congestion or pressure. No ear pain. No sore throat. She denies chest pain or palpitations. She denies abdominal pain , reports diarrhea a few days ago with nausea, but none since then. She denies recent travel. Reports a boy was with her grand daughter last week, he was from the [facility]. She had no direct contact with him. She denies urinary concerns or neurological deficits. No tobacco or vaping, no recreational drug use or alcohol use. In the ED leukocytosis 15,870 noted with elevated hgb 16.4 and hct 51.6. K+ 3.3 , bicarb elevated 32.8. Troponin negative. CXR negative. She was given Duonebs, Solumedrol and Levaquin. Symptoms improved in the ED. Influenza was negative, seymour virus pending. She will be admitted for COPD exacerbation related to URI. She was seenin primary care clinic, with Dr Rodriguez 11/07 for similar symptoms. Was started on Trelegy for maintenance inhaler, encouraged to continue albuterol. Lower Back Pain Score (Numeric/FACES): 9 - Related Data Allergies/Adverse Reactions: Allergies Allergy/AdvReac Type Severity Reaction Status Date / Time cephalexin [From Keflex] Allergy Hives Verified 12/12/19 02:55 Sulfa (Sulfonamide Allergy Hives Verified 12/12/19 02:55 Antibiotics) Home Medications: Home Meds Acyclovir 400 mg PO DAILY 08/17/19 [History] Apixaban [Eliquis] 5 mg PO BID 08/17/19 [History] Furosemide [Lasix] 80 mg PO BID 08/17/19 [History] Gabapentin [Neurontin] 100 mg PO QAM 08/17/19 [History] Gabapentin [Neurontin] 300 mg PO BEDTIME 08/17/19 [History] Levothyroxine 125 mcg PO ACBREAKFAST 08/17/19 [History] Liraglutide [Victoza] 1.8 mg SUBCUT DAILY 08/17/19 [History] Meloxicam [Mobic] 7.5 mg PO BID 08/17/19 [History] Montelukast [Singulair] 10 mg PO DAILY 08/17/19 [History] Nystatin [Nystop] 60 gm TP BID PRN 08/17/19 [History] Potassium Chloride 32 meq PO BID 08/17/19 [History] Simvastatin 20 mg PO BEDTIME 08/17/19 [History] allopurinoL [Zyloprim] 100 mg PO DAILY 08/17/19 [History] amLODIPine [Norvasc] 5 mg PO DAILY 08/17/19 [History] metFORMIN [Glucophage XR] 500 mg PO BIDMEALS 08/17/19 [History] Albuterol [Ventolin HFA] 1 puff INH Q4H PRN #1 puff 08/18/19 [Rx] predniSONE [Prednisone] 50 mg PO DAILY #5 tablet 08/18/19 [Rx] Cholecalciferol (Vitamin D3) [Vitamin D3] 5,000 unit PO DAILY 10/16/19 [History] Cyclobenzaprine [Flexeril] 10 mg PO DAILY #30 tab 10/16/19 [Rx] Benzonatate [Tessalon Perle] 100 mg PO TID #20 capsule 11/02/19 [Rx] predniSONE [Prednisone] 40 mg PO DAILY #8 tablet 11/02/19 [Rx] Past Medical History HEENT History: Reports: Cataract Cardiovascular History: Reports: Afib, Arrhythmia (PVC and paroxysmal SVT), CAD , Heart Failure, Hypertension Respiratory History: Reports: COPD, Sleep Apnea (uses CPAP) Gastrointestinal History: Reports: None Genitourinary History: Reports: None METER TESTER History: Reports: Musculoskeletal History: Reports: Back Pain, Chronic Neurological History: Reports: None. Denies: CVA, TIA Psychiatric History: Reports: None Endocrine/Metabolic History: Reports: Diabetes, Type II, Hypothyroidism, Obesity /BMI 30+, Other (See Below) (lyphmedema) Insulin Pump Model and Ventilation Mechanic: None Hematologic History: Reports: None Immunologic History: Reports: None Oncologic (Cancer) History: Reports: None Dermatologic History: Reports: None - Infectious Disease History Infectious Disease History: Reports: Chicken Pox, Measles - Past Surgical History Head Surgeries/Procedures: Reports: None HEENT Surgical History: Reports: Tonsillectomy Cardiovascular Surgical History: Reports: Cardiac Ablation GI Surgical History: Reports: Cholecystectomy Female Surgical History: Reports: Hysterectomy Musculoskeletal Surgical History: Reports: Other (See Below) Other Musculoskeletal Surgeries/Procedures:: Left knee Social & Family History - Family History Family Medical History: Noncontributory - Tobacco Use Smoking Status *Q: Never Smoker Second Hand Smoke Exposure: Yes - Caffeine Use Caffeine Use: Reports: None - Recreational Drug Use Recreational Drug Use: No - Living Situation & Occupation Living situation: Reports: with Family Occupation: Retired H&P Review of Systems - Review of Systems: Review Of Systems: See Below General: Reports: Fever, Chills, Malaise HEENT: Reports: No Symptoms. Denies: Headaches, Sinus Congestion, Sore Throat Pulmonary: Reports: Shortness of Breath, Wheezing, Cough. Denies: Sputum, Hemoptysis Cardiovascular: Reports: Dyspnea on Exertion. Denies: Chest Pain Gastrointestinal: Reports: No Symptoms, Diarrhea (few days ago, none since), Nausea (few days ago, none since). Denies: Abdominal Pain Genitourinary: Reports: No Symptoms. Denies: Dysuria, Frequency, Urgency Skin: Reports: No Symptoms. Denies: Erythema, Wound Psychiatric: Reports: No Symptoms. Denies: Confusion Neurological: Reports: No Symptoms. Denies: Headache, Numbness, Paresthesia Hematologic/Lymphatic: Reports: No Symptoms Immunologic: Reports: No Symptoms Exam - Exam Exam: See Below - Vital Signs Vital Signs: Last Vital Signs Temp 97.9 F 12/12/19 08:42 Pulse 100 12/12/19 08:42 Resp 20 12/12/19 08:42 BP 148/66 H 12/12/19 08:42 Pulse Ox 97 12/12/19 08:42 Weight: 106.594 kg - Exam General: Alert, Oriented, Cooperative HEENT: Conjunctiva Clear, Mucosa Moist & [place], Posterior Pharynx Clear Neck: Supple, Trachea Midline. No: JVD Lungs: Decreased Breath Sounds (bilaterally), Crackles (fine crackles bilaterally) Cardiovascular: Regular Rate, Regular Rhythm, Normal S1, Normal S2 GI/Abdominal Exam: Normal Bowel Sounds, Soft, Non-Tender, Other (obeses abdomen) Back Exam: Normal Inspection, Full Range of Motion Extremities: Normal Inspection, Normal Range of Motion, Other (lyphmedema noted to bilateral legs, no overt edeme or pitting edema. She reports legs are the same as her normal no increase in size) Skin: Warm, Dry Neuro Extensive - Mental Status: Alert, Oriented x3 Neuro Extensive - Motor, Sensory, Reflexes: CN II-XII Intact Psychiatric: Alert, Normal Affect, Normal Mood - Patient Data Lab Results Last 24 hrs: Laboratory Results - last 24 hr 12/11/19 12/11/19 12/11/19 Range/Units 23:22 23:22 23:22 WBC 15.87 H (4.0-11.0) K/uL RBC 5.91 H (4.30-5.90) M/uL Hgb 16.4 H (12.0-16.0) g/dL Hct 51.6 H (36.0-46.0) % MCV 87.3 (80.0-98.0) fL MCH 27.7 (27.0-32.0) pg MCHC 31.8 (31.0-37.0) g/dL RDW Std Deviation 48.8 (28.0-62.0) fl RDW Coeff of Robinson 15 (11.0-15.0) % Plt Count 388 (150-400) K/uL MPV 10.30 (7.40-12.00) fL Neut % (Auto) 65.3 (48.0-80.0) % Lymph % (Auto) 26.0 (16.0-40.0) % Bates % (Auto) 7.6 (0.0-15.0) % Eos % (Auto) 0.8 (0.0-7.0) % Baso % (Auto) 0.3 (0.0-1.5) % Neut # (Auto) 10.4 H (1.4-5.7) K/uL Lymph # (Auto) 4.1 H (0.6-2.4) K/uL Bates # (Auto) 1.2 H (0.0-0.8) K/uL Eos # (Auto) 0.1 (0.0-0.7) K/uL Baso # (Auto) 0.0 (0.0-0.1) K/uL Nucleated RBC % 0.0 /100WBC Nucleated RBCs # 0 K/uL Lactate 2.0 (0.20-2.00) mmol/L Sodium 143 (136-145) mmol/L Potassium 3.3 L (3.5-5.1) mmol/L Chloride 102 (98-107) mmol/L Carbon Dioxide 32.8 H (21.0-32.0) mmol/L BUN 10 (7.0-18.0) mg/dL Creatinine 1.0 (0.6-1.0) mg/dL Est Cr Clr Drug Dosing 44.10 mL/min Estimated GFR (MDRD) 53.8 ml/min Glucose 106 (74-106) mg/dL POC Glucose (60-110) mg/dL Calcium 9.7 (8.5-10.1) mg/dL Troponin I < 0.050 (0.000-0.056) ng/mL B-Natriuretic Peptide (<100) PG/ML 12/11/19 12/12/19 12/12/19 Range/Units 23:22 05:58 08:31 WBC (4.0-11.0) K/uL RBC (4.30-5.90) M/uL Hgb (12.0-16.0) g/dL Hct (36.0-46.0) % MCV (80.0-98.0) fL MCH (27.0-32.0) pg MCHC (31.0-37.0) g/dL RDW Std Deviation (28.0-62.0) fl RDW Coeff of Robinson (11.0-15.0) % Plt Count (150-400) K/uL MPV (7.40-12.00) fL Neut % (Auto) (48.0-80.0) % Lymph % (Auto) (16.0-40.0) % Bates % (Auto) (0.0-15.0) % Eos % (Auto) (0.0-7.0) % Baso % (Auto) (0.0-1.5) % Neut # (Auto) (1.4-5.7) K/uL Lymph # (Auto) (0.6-2.4) K/uL Bates # (Auto) (0.0-0.8) K/uL Eos # (Auto) (0.0-0.7) K/uL Baso # (Auto) (0.0-0.1) K/uL Nucleated RBC % /100WBC Nucleated RBCs # K/uL Lactate (0.20-2.00) mmol/L Sodium (136-145) mmol/L Potassium (3.5-5.1) mmol/L Chloride (98-107) mmol/L Carbon Dioxide (21.0-32.0) mmol/L BUN (7.0-18.0) mg/dL Creatinine (0.6-1.0) mg/dL Est Cr Clr Drug Dosing mL/min Estimated GFR (MDRD) ml/min Glucose (74-106) mg/dL POC Glucose 165 H 184 H (60-110) mg/dL Calcium (8.5-10.1) mg/dL Troponin I (0.000-0.056) ng/mL B-Natriuretic Peptide 6 (<100) PG/ML 12/12/19 12/12/19 Range/Units 08:52 08:52 WBC 9.68 (4.0-11.0) K/uL RBC 5.11 (4.30-5.90) M/uL Hgb 14.1 (12.0-16.0) g/dL Hct 44.3 (36.0-46.0) % MCV 86.7 (80.0-98.0) fL MCH 27.6 (27.0-32.0) pg MCHC 31.8 (31.0-37.0) g/dL RDW Std Deviation 49.0 (28.0-62.0) fl RDW Coeff of Robinson 15 (11.0-15.0) % Plt Count 312 (150-400) K/uL MPV 10.60 (7.40-12.00) fL Neut % (Auto) 91.1 H (48.0-80.0) % Lymph % (Auto) 8.3 L (16.0-40.0) % Bates % (Auto) 0.6 (0.0-15.0) % Eos % (Auto) 0.0 (0.0-7.0) % Baso % (Auto) 0.0 (0.0-1.5) % Neut # (Auto) 8.8 H (1.4-5.7) K/uL Lymph # (Auto) 0.8 (0.6-2.4) K/uL Bates # (Auto) 0.1 (0.0-0.8) K/uL Eos # (Auto) 0.0 (0.0-0.7) K/uL Baso # (Auto) 0.0 (0.0-0.1) K/uL Nucleated RBC % 0.0 /100WBC Nucleated RBCs # 0 K/uL Lactate (0.20-2.00) mmol/L Sodium 142 (136-145) mmol/L Potassium 3.2 L (3.5-5.1) mmol/L Chloride 103 (98-107) mmol/L Carbon Dioxide 27.0 (21.0-32.0) mmol/L BUN 13 (7.0-18.0) mg/dL Creatinine 1.3 H (0.6-1.0) mg/dL Est Cr Clr Drug Dosing 34.11 mL/min Estimated GFR (MDRD) 39.7 ml/min Glucose 206 H (74-106) mg/dL POC Glucose (60-110) mg/dL Calcium 9.6 (8.5-10.1) mg/dL Troponin I (0.000-0.056) ng/mL B-Natriuretic Peptide (<100) PG/ML Result Diagrams: 12/12/19 08:52 12/12/19 08:52 Enio Results Last 24 hrs: Microbiology 12/11/19 23:13 Influenza Type A Antigen Screen - Final Nasopharyngeal Swab NEGATIVE INFLUENZA A VIRUS AG REFERENCE RANGE: NEGATIVE Influenza Type B Antigen Screen - Final NEGATIVE INFLUENZA B VIRUS AG REFERENCE RANGE: NEGATIVE 12/11/19 23:45 Anaerobic Blood Culture - Final Blood - Venous - Lab Draw Sepsis Event Note - Evaluation Sepsis Screening Result: No Definite Risk - Focused Exam Vital Signs: Vital Signs Temp Pulse Resp BP Pulse Ox 12/12/19 08:42 97.9 F 100 20 148/66 H 97 12/12/19 04:00 97.4 F 98 18 132/84 94 L 12/12/19 02:23 97.4 F 104 H 18 144/75 H 95 12/12/19 01:35 97.6 F 104 H 24 H 162/82 H 90 L 12/12/19 01:24 97.1 F 104 H 20 104/83 92 L 12/11/19 23:56 98 22 H 109/73 97 12/11/19 23:04 97.7 F 94 18 103/73 94 L Date Exam was Performed: 12/12/19 Time Exam was Performed: 09:22 - Problem List (1) COPD exacerbation SNOMED Code(s): 964043829 ICD Code: J44.1 - CHRONIC OBSTRUCTIVE PULMONARY DISEASE W (ACUTE) EXACERBATION Status: Acute Current Visit: Yes (2) HTN (hypertension) SNOMED Code(s): 62831543 ICD Code: I10 - ESSENTIAL (PRIMARY) HYPERTENSION Status: Chronic Current Visit: Yes (3) Afib SNOMED Code(s): 90951284 ICD Code: I48.91 - UNSPECIFIED ATRIAL FIBRILLATION Status: Chronic Current Visit: Yes (4) S/P ablation of atrial fibrillation SNOMED Code(s): 209351754, 908333612, 293963297 ICD Code: Z98.890 - OTHER SPECIFIED POSTPROCEDURAL STATES; Z86.79 - PERSONAL HISTORY OF OTHER DISEASES OF THE CIRCULATORY SYSTEM Status: Chronic Current Visit: Yes (5) CAD (coronary artery disease) SNOMED Code(s): 54687030 ICD Code: I25.10 - ATHSCL HEART DISEASE OF [place] CORONARY ARTERY W/O ANG PCTRS Status: Chronic Current Visit: Yes (6) CHF (congestive heart failure) SNOMED Code(s): 10226734 ICD Code: I50.9 - HEART FAILURE, UNSPECIFIED Status: Chronic Current Visit: Yes (7) ZAHRA on CPAP SNOMED Code(s): 68498940 ICD Code: G47.33 - OBSTRUCTIVE SLEEP APNEA (ADULT) (PEDIATRIC); Z99.89 - DEPENDENCE ON OTHER ENABLING MACHINES AND DEVICES Status: Chronic Current Visit: Yes (8) DM type 2 (diabetes mellitus, type 2) SNOMED Code(s): 26824799 ICD Code: E11.9 - TYPE 2 DIABETES MELLITUS WITHOUT COMPLICATIONS Status: Chronic Current Visit: Yes Qualifiers: Diabetes mellitus terminal carman insulin use: without terminal carman use (9) Lymphedema of both lower extremities SNOMED Code(s): 96575927358226724 ICD Code: I89.0 - LYMPHEDEMA, NOT ELSEWHERE CLASSIFIED Status: Chronic Current Visit: Yes (10) Anticoagulation adequate SNOMED Code(s): 221482511, 724356975 ICD Code: Z79.01 - [facility] (CURRENT) USE OF ANTICOAGULANTS Status: Chronic Current Visit: Yes (11) COPD (chronic obstructive pulmonary disease) SNOMED Code(s): 43700208 ICD Code: J44.9 - CHRONIC OBSTRUCTIVE PULMONARY DISEASE, UNSPECIFIED Status : Chronic Current Visit: No Problem List Initiated/Reviewed/Updated: Yes Orders Last 24hrs: Active Orders 24 hr Category Date Time Status Admission Status [Patient Status] [ADT] Stat ADT 12/12/19 01:38 Active Blood Glucose Check, Bedside [RC] TIDAC Care 12/12/19 05:32 Active Height and Weight [RC] DAILY Care 12/12/19 08:40 Active Intake and Output Strict [RC] Q12H Care 12/12/19 08:40 Active Intake and Output [RC] QSHIFT Care 12/12/19 07:56 Inactive Oxygen Therapy [RC] PRN Care 12/12/19 07:56 Active RT Aerosol Therapy [RC] ASDIRECTED Care 12/11/19 23:18 Active RT Aerosol Therapy [RC] ASDIRECTED Care 12/12/19 03:19 Active VTE/DVT Education [RC] PER UNIT ROUTINE Care 12/12/19 07:56 Active Vital Signs [RC] Q4H Care 12/12/19 07:56 Active [employer] Diet [DIET] Diet 12/12/19 Breakfast Active CORONAVIRUS (COVID-19) PCR [MREF] Stat Lab 12/11/19 23:32 Ordered CULTURE BLOOD [BC] Stat Lab 12/11/19 23:40 Received CULTURE BLOOD [BC] Stat Lab 12/11/19 23:45 Results Acetaminophen [Tylenol] Med 12/12/19 06:07 Active 650 mg PO Q6H PRN Albuterol/Ipratropium [DuoNeb 3.0-0.5 MG/3 ML] Med 12/12/19 06:00 Active 3 ml NEB Q6HRRT Gabapentin [Neurontin] Med 12/12/19 09:00 Active 100 mg PO DAILY Gabapentin [Neurontin] Med 12/12/19 21:00 Active 300 mg PO BEDTIME Insulin Aspart [NovoLOG] Med 12/12/19 07:55 Active See Protocol SUBCUT TIDAC Ondansetron [Zofran] Med 12/12/19 07:55 Active 4 mg IVPUSH Q4H PRN Potassium Chloride [Klor-Con M20] Med 12/12/19 09:18 Once 40 meq PO ONETIME ONE Sodium Chloride 0.9% [Saline Flush] Med 12/12/19 07:55 Active 2.5 ml FLUSH ASDIRECTED PRN methylPREDNISolone Sod Succ [Solu-MEDROL] Med 12/12/19 09:00 Active 125 mg IVPUSH DAILY Blood Culture x2 Reflex Set [OM.PC] Stat Oth 12/11/19 23:16 Ordered Isolation [COMM] Routine Oth 12/11/19 21:21 Active Saline Lock Insert [OM.PC] Routine Oth 12/12/19 07:55 Ordered Resuscitation Status Routine Resus Stat 12/12/19 07:55 Ordered Medication Orders Acetaminophen (Tylenol) 650 mg PO Q6H PRN PRN Reason: Pain (mild 1-3) Last Admin: 12/12/19 06:26 Dose: 650 mg Albuterol/Ipratropium (Duoneb 3.0-0.5 Mg/3 Ml) 3 ml NEB Q6HRRT [facility] Last Admin: 12/12/19 06:07 Dose: 3 ml Gabapentin (Neurontin) 300 mg PO BEDTIME BAKARI Gabapentin (Neurontin) 100 mg PO DAILY [facility] Last Admin: 12/12/19 08:44 Dose: 100 mg Insulin Aspart (Novolog) 0 unit SUBCUT TIDAC [facility]; Protocol Last Admin: 12/12/19 08:52 Dose: 1 unit Methylprednisolone Sodium Succinate (Solu-Medrol) 125 mg IVPUSH DAILY [facility] Last Admin: 12/12/19 08:44 Dose: 125 mg Ondansetron HCl (Zofran) 4 mg IVPUSH Q4H PRN PRN Reason: Nausea Potassium Chloride (Klor-Con M20) 40 meq PO ONETIME ONE Stop: 12/12/19 09:19 Sodium Chloride (Saline Flush) 2.5 ml FLUSH ASDIRECTED PRN PRN Reason: Keep Vein Open Assessment/Plan Comment:: This 79 year old female admitted with COPD exacerbation and URI 1. COPD exacerbation/URI - Influenza negative, coronavirus testing pending - Continue Solumedrol 125 mg IV daily for now, wheezing improved - Duonebs every 6hr PRN - Levaquin 750 q48 hrs - Tylenol PRN pain - Respiratory consult for COPD education - Needs maintenance therapy, add Advair for now. - Leukocytosis improved overnight. Monitor. 2. DM type 2: - Hold oral medications - Novolog SSI TIDAC - Counseled on higher glucose due to steroids. 3. HTN: Stable. - Continue Amlodipine 5 daily 4. Afib, s/p ablation 2016 - Stable, continue Anticoagulation with Elquis 5. CHF - Last ECHO 2018 revealed mild mitral regurgitation, ejection fraction 65% with no evidence of pulmonary hypertension or effusion - Hold Lasix today due to bump in Cr, does not appear overloaded. Monitor - Strict I/O - Daily weights 6. Chronic pain: - Continue Gabapentin VTE prophylaxis: Eliquis Code Status: Full code Dispo: 1-2 days pending improvement. - Mortality Measure Prognosis:: Good
[2019-12-12] MEDS: Apixaban 5 MG Tab PO SCH ×2 (10:49→20:46)
[2019-12-12] MEDS: amLODIPine 5 MG Tab PO SCH (10:49)
[2019-12-12] MEDS: Fluticasone/Salmeterol 250-50 MCG Inhalation Powder 14/Diskus INH SCH ×2 (11:30→21:23)
[2019-12-12] MEDS ORDERED: Gabapentin 100 MG Cap PO SCH (21:00)
[2019-12-13] MEDS: Albuterol/Ipratropium 3.0-0.5 MG/3 ML Neb Soln NEB SCH ×2 (05:45→11:14)
[2019-12-13] MEDS: Insulin Aspart 100 Units/ML 3 ML Pen SUBCUT SCH ×2 (08:05→11:49)
[2019-12-13] MEDS: Apixaban 5 MG Tab PO SCH (09:00)
[2019-12-13] MEDS: Gabapentin 100 MG Cap PO SCH (09:00)
[2019-12-13] MEDS: Fluticasone/Salmeterol 250-50 MCG Inhalation Powder 14/Diskus INH SCH (09:00)
[2019-12-13] MEDS: amLODIPine 5 MG Tab PO SCH (09:00)
[2019-12-13] MEDS: methylPREDNISolone Sodium Succinate 125 MG/2 ML SDV IVPUSH SCH (09:01)
[2019-12-13 09:04] LABS: CARBON DIOXIDE,CO2 26.8 mmol/L (21.0-32.0); POTASSIUM,K 3.9 mmol/L (3.5-5.1)
[2019-12-13] MEDS: Acetaminophen 325 MG Tab PO PRN (11:58)
--- NOTE | 2019-12-13 13:50 | PCM.DCSUM1 ---
Discharge Summary - Hospital Course Brief History: This 79 maura old female with pmh of COPD, HTN, Afib s/p ablation 2016 on Eliquis, ZAHRA on CPAP, obesity, DM type 2, and chronic pain presented to the ED with complaints of cough, dyspnea and not feeling well. She reports she started having some difficultly breathing 2 days ago, has felt warm at home and sweating at night. She Denies over fevers, but some chillls. Reports non productive dry cough. No significant sinus congestion or pressure. No ear pain. No sore throat. She denies chest pain or palpitations. She denies abdominal pain , reports diarrhea a few days ago with nausea, but none since then. She denies recent travel. Reports a boy was with her grand daughter last week, he was from the [facility]. She had no direct contact with him. She denies urinary concerns or neurological deficits. No tobacco or vaping, no recreational drug use or alcohol use. In the ED leukocytosis 15,870 noted with elevated hgb 16.4 and hct 51.6. K+ 3.3, bicarb elevated 32.8. Troponin negative. CXR negative. She was given Duonebs, Solumedrol and Levaquin. Symptoms improved in the ED. Influenza was negative, seymour virus pending. She will be admitted for COPD exacerbation related to URI. She was seenin primary care clinic, with Dr Rodriguez 11/07 for similar symptoms. Was started on Trelegy for maintenance inhaler , encouraged to continue albuterol. Diagnosis: Stroke: No - Discharge Data Discharge Date: 12/13/19 Discharge Disposition: Home, Self-Care 01 Condition: Good - Referral to Home Health Primary Care Physician: Kady Cantrell, DO - Discharge Diagnosis/Problem(s) (1) COPD exacerbation SNOMED Code(s): 480765820 ICD Code: J44.1 - CHRONIC OBSTRUCTIVE PULMONARY DISEASE W (ACUTE) EXACERBATION Status: Acute Current Visit: Yes (2) HTN (hypertension) SNOMED Code(s): 70285432 ICD Code: I10 - ESSENTIAL (PRIMARY) HYPERTENSION Status: Chronic Current Visit: Yes (3) Afib SNOMED Code(s): 05299798 ICD Code: I48.91 - UNSPECIFIED ATRIAL FIBRILLATION Status: Chronic Current Visit: Yes (4) S/P ablation of atrial fibrillation SNOMED Code(s): 965968966, 830970204, 558605923 ICD Code: Z98.890 - OTHER SPECIFIED POSTPROCEDURAL STATES; Z86.79 - PERSONAL HISTORY OF OTHER DISEASES OF THE CIRCULATORY SYSTEM Status: Chronic Current Visit: Yes (5) CAD (coronary artery disease) SNOMED Code(s): 26001283 ICD Code: I25.10 - ATHSCL HEART DISEASE OF [place] CORONARY ARTERY W/O ANG PCTRS Status: Chronic Current Visit: Yes (6) CHF (congestive heart failure) SNOMED Code(s): 43477149 ICD Code: I50.9 - HEART FAILURE, UNSPECIFIED Status: Chronic Current Visit: Yes (7) ZAHRA on CPAP SNOMED Code(s): 35098145 ICD Code: G47.33 - OBSTRUCTIVE SLEEP APNEA (ADULT) (PEDIATRIC); Z99.89 - DEPENDENCE ON OTHER ENABLING MACHINES AND DEVICES Status: Chronic Current Visit: Yes (8) DM type 2 (diabetes mellitus, type 2) SNOMED Code(s): 86237858 ICD Code: E11.9 - TYPE 2 DIABETES MELLITUS WITHOUT COMPLICATIONS Status: Chronic Current Visit: Yes Qualifiers: Diabetes mellitus fdc insulin use: without fdc use (9) Lymphedema of both lower extremities SNOMED Code(s): 29508085271481108 ICD Code: I89.0 - LYMPHEDEMA, NOT ELSEWHERE CLASSIFIED Status: Chronic Current Visit: Yes (10) Anticoagulation adequate SNOMED Code(s): 790347834, 470011530 ICD Code: Z79.01 - MCFP (CURRENT) USE OF ANTICOAGULANTS Status: Chronic Current Visit: Yes (11) COPD (chronic obstructive pulmonary disease) SNOMED Code(s): 14498364 ICD Code: J44.9 - CHRONIC OBSTRUCTIVE PULMONARY DISEASE, UNSPECIFIED Status : Chronic Current Visit: No - Patient Summary/Data Consults: Consultations 12/12/19 09:47 Consult to Respiratory Therapy [Respiratory Care Assess and Treatment] [CONS] Routine 12/13/19 10:08 Consult to Physical Therapy [PT Evaluation and Treatment] [CONS] Routine - Patient Instructions Diet: Heart Healthy Diet, Diabetic Diet Activity: As Tolerated, No Strenuous Activities, Rest and Relax Today Showering/Bathing: May Shower Notify Provider of: Fever, Increased Pain, Swelling and Redness, Drainage, Nausea and/or Vomiting Other/Special Instructions: Self isolate for now. Good hand washing. and if family members are sick stay away from them. Pulmonary function testing as outpatient. - Discharge Plan *PRESCRIPTION DRUG MONITORING PROGRAM REVIEWED*: Not Applicable *COPY OF PRESCRIPTION DRUG MONITORING REPORT IN PATIENT MATTHEW: Not Applicable Prescriptions/Med Rec: Levofloxacin [Levaquin] 750 mg PO Q48H #3 tablet predniSONE [Prednisone] 40 mg PO DAILY #8 tablet Home Medications: Home Meds Acyclovir 400 mg PO DAILY 08/17/19 [History] Apixaban [Eliquis] 5 mg PO BID 08/17/19 [History] Furosemide [Lasix] 80 mg PO BID 08/17/19 [History] Gabapentin [Neurontin] 100 mg PO QAM 08/17/19 [History] Gabapentin [Neurontin] 300 mg PO BEDTIME 08/17/19 [History] allopurinoL [Zyloprim] 100 mg PO DAILY 08/17/19 [History] Albuterol [Ventolin HFA] 1 puff INH Q4H PRN #1 puff 08/18/19 [Rx] Clotrimazole/Betamethasone Dip [Lotrisone Cream] 1 applic TP BID PRN 12/12/19 [ History] Cyclobenzaprine [Flexeril] 10 mg PO TID PRN 12/12/19 [History] Dulaglutide [Trulicity] 1.5 mg SQ WEEKLY 12/12/19 [History] Fluticasone/Umeclidin/Vilanter [Trelegy Ellipta 100-62.5-25 MCG] 1 puff INH DAILY 12/12/19 [History] Hydrocodone/Acetaminophen [Hydrocodon-Acetaminophn 10-325] 1 tab PO Q4H PRN [History] Acetaminophen [Tylenol] 650 mg PO Q6H PRN tablet 12/13/19 [Rx] Levofloxacin [Levaquin] 750 mg PO Q48H #3 tablet 12/13/19 [Rx] predniSONE [Prednisone] 40 mg PO DAILY #8 tablet 12/13/19 [Rx] Oxygen Therapy Mode: Room Air Patient Handouts: Chronic Obstructive Pulmonary Disease, [id number], Levofloxacin tablets, Prednisone tablets Referrals: Kady Cantrell DO [Primary Care Provider] - Antonio Aguila MD [Ordering Only Provider] - 12/19/19 9:00 am (Arrive at 9 with photo ID insurance cards, and medication list. This was not able to made with Tamia, due to her full schedule. ) - Discharge Summary/Plan Comment DC Time >30 min.: No Discharge Summary/Plan Comment: Admitting Diagnoses: COPD exacerbation URI Discharge Diagnoses: COPD exacerbation URI bronchitis Elsie was admitted and monitored for bronchitis and COPD exacerbation. She was treated with Levaquin and Solumedrol. She did not need oxygen during stay. She reports she is feeling improved today. COVID testing negative. She will be discharged home today with Levaquin to take Q48 hr x 3 more days and short prednisone taper. She is to monitor BS, which may elevate slightly with steroids. She is to continue Trelegy, recommend outpatient PFT testing as well. She was encourage to self isolate due to acute illness and to limit interaction with grand children currently while she is not feeling well. She is to return to the ED or clinic if concern should arise. Follow up with PCP in 1 week. - Patient Data Vitals - Most Recent: Last Vital Signs Temp 98.3 F 12/13/19 11:51 Pulse 89 12/13/19 11:51 Resp 17 12/13/19 11:51 BP 127/65 12/13/19 11:51 Pulse Ox 94 L 12/13/19 11:51 Weight - Most Recent: 116.12 kg I&O - Last 24 hours: Intake & Output 12/12/19 12/13/19 12/13/19 22:59 06:59 14:59 Intake Total 800 1100 Output Total 350 500 Balance 450 600 Lab Results - Last 24 hrs: Laboratory Results - last 24 hr 12/12/19 12/13/19 12/13/19 Range/Units 17:52 07:57 08:28 WBC 16.98 H (4.0-11.0) K/uL RBC 4.81 (4.30-5.90) M/uL Hgb 13.0 (12.0-16.0) g/dL Hct 41.4 (36.0-46.0) % MCV 86.1 (80.0-98.0) fL MCH 27.0 (27.0-32.0) pg MCHC 31.4 (31.0-37.0) g/dL RDW Std Deviation 50.0 (28.0-62.0) fl RDW Coeff of Robinson 16 H (11.0-15.0) % Plt Count 317 (150-400) K/uL MPV 10.40 (7.40-12.00) fL Neut % (Auto) 87.1 H (48.0-80.0) % Lymph % (Auto) 7.4 L (16.0-40.0) % Curry % (Auto) 5.5 (0.0-15.0) % Eos % (Auto) 0.0 (0.0-7.0) % Baso % (Auto) 0.0 (0.0-1.5) % Neut # (Auto) 14.8 H (1.4-5.7) K/uL Lymph # (Auto) 1.3 (0.6-2.4) K/uL Curry # (Auto) 0.9 H (0.0-0.8) K/uL Eos # (Auto) 0.0 (0.0-0.7) K/uL Baso # (Auto) 0.0 (0.0-0.1) K/uL Nucleated RBC % 0.0 /100WBC Nucleated RBCs # 0 K/uL Sodium (136-145) mmol/L Potassium (3.5-5.1) mmol/L Chloride (98-107) mmol/L Carbon Dioxide (21.0-32.0) mmol/L BUN (7.0-18.0) mg/dL Creatinine (0.6-1.0) mg/dL Est Cr Clr Drug Dosing mL/min Estimated GFR (MDRD) ml/min Glucose (74-106) mg/dL POC Glucose 206 H 163 H (60-110) mg/dL Calcium (8.5-10.1) mg/dL 12/13/19 12/13/19 Range/Units 08:28 11:16 WBC (4.0-11.0) K/uL RBC (4.30-5.90) M/uL Hgb (12.0-16.0) g/dL Hct (36.0-46.0) % MCV (80.0-98.0) fL MCH (27.0-32.0) pg MCHC (31.0-37.0) g/dL RDW Std Deviation (28.0-62.0) fl RDW Coeff of Robinson (11.0-15.0) % Plt Count (150-400) K/uL MPV (7.40-12.00) fL Neut % (Auto) (48.0-80.0) % Lymph % (Auto) (16.0-40.0) % Curry % (Auto) (0.0-15.0) % Eos % (Auto) (0.0-7.0) % Baso % (Auto) (0.0-1.5) % Neut # (Auto) (1.4-5.7) K/uL Lymph # (Auto) (0.6-2.4) K/uL Curry # (Auto) (0.0-0.8) K/uL Eos # (Auto) (0.0-0.7) K/uL Baso # (Auto) (0.0-0.1) K/uL Nucleated RBC % /100WBC Nucleated RBCs # K/uL Sodium 141 (136-145) mmol/L Potassium 3.9 (3.5-5.1) mmol/L Chloride 104 (98-107) mmol/L Carbon Dioxide 26.8 (21.0-32.0) mmol/L BUN 17 (7.0-18.0) mg/dL Creatinine 1.0 (0.6-1.0) mg/dL Est Cr Clr Drug Dosing 44.35 mL/min Estimated GFR (MDRD) 53.8 ml/min Glucose 165 H (74-106) mg/dL POC Glucose 164 H (60-110) mg/dL Calcium 9.7 (8.5-10.1) mg/dL KIMO Results - Last 24 hrs: Microbiology 12/11/19 23:45 Aerobic Blood Culture - Preliminary Blood - Venous - Lab Draw NO GROWTH AFTER 1 DAY Anaerobic Blood Culture - Final 12/11/19 23:40 Aerobic Blood Culture - Preliminary Blood - Venous NO GROWTH AFTER 1 DAY Anaerobic Blood Culture - Preliminary NO GROWTH AFTER 1 DAY Med Orders - Current: Current Medications Acetaminophen (Tylenol) 650 mg PO Q6H PRN PRN Reason: Pain (mild 1-3) Last Admin: 12/13/19 11:58 Dose: 650 mg Albuterol/Ipratropium (Duoneb 3.0-0.5 Mg/3 Ml) 3 ml NEB Q6HRRT [facility] Last Admin: 12/13/19 11:14 Dose: 3 ml Amlodipine Besylate (Norvasc) 5 mg PO DAILY [facility] Last Admin: 12/13/19 09:00 Dose: 5 mg Apixaban (Eliquis) 5 mg PO BID [facility] Last Admin: 12/13/19 09:00 Dose: 5 mg Gabapentin (Neurontin) 300 mg PO BEDTIME [facility] Last Admin: 12/12/19 20:46 Dose: 300 mg Gabapentin (Neurontin) 100 mg PO DAILY [facility] Last Admin: 12/13/19 09:00 Dose: 100 mg Levofloxacin/Dextrose 750 mg/ (Premix) 150 mls @ 100 mls/hr IV Q48H [facility] Insulin Aspart (Novolog) 0 unit SUBCUT TIDAC [facility]; Protocol Last Admin: 12/13/19 11:49 Dose: 1 unit Methylprednisolone Sodium Succinate (Solu-Medrol) 125 mg IVPUSH DAILY [facility] Last Admin: 12/13/19 09:01 Dose: 125 mg Ondansetron HCl (Zofran) 4 mg IVPUSH Q4H PRN PRN Reason: Nausea Fluticasone/Salmeterol (Advair Diskus 250-50) 1 puff INH BID [facility] Last Admin: 12/13/19 09:00 Dose: 1 inhalation Sodium Chloride (Saline Flush) 2.5 ml FLUSH ASDIRECTED PRN PRN Reason: Keep Vein Open Discontinued Medications Albuterol/Ipratropium (Duoneb 3.0-0.5 Mg/3 Ml) 9 ml NEB ONETIME ONE Stop: 12/11/19 23:19 Last Admin: 12/11/19 23:45 Dose: 9 ml Levofloxacin/Dextrose 750 mg/ (Premix) 150 mls @ 100 mls/hr IV ONETIME ONE Stop: 12/12/19 00:46 Last Admin: 12/11/19 23:48 Dose: 100 mls/hr Methylprednisolone Sodium Succinate (Solu-Medrol) 125 mg IVPUSH ONETIME ONE Stop: 12/11/19 23:19 Last Admin: 12/11/19 23:47 Dose: 125 mg Potassium Chloride (Klor-Con M20) 20 meq PO ONETIME ONE Stop: 12/12/19 00:29 Last Admin: 12/12/19 01:35 Dose: 20 meq Potassium Chloride (Klor-Con M20) 40 meq PO ONETIME ONE Stop: 12/12/19 09:19 Last Admin: 12/12/19 09:38 Dose: 40 meq
[2019-12-13] MEDS ORDERED: Levofloxacin/Dextrose 5%-Water 750 MG in Premix Bag 1 BAG IV SCH (21:00)
== END 2019-12-13 15:30 | disposition home or self-care (01) ==
LOC: MW.ED 21:06 → MW.MS 12-12 01:38
PROVIDERS: ADMIT Internal Medicine; ATTEND Internal Medicine
DX: J44.1 Chronic obstructive pulmonary disease with (acute) exacerbation (principal); Z03.818 Encounter for observation for suspected exposure to other biological agents ruled out; I25.10 Atherosclerotic heart disease of native coronary artery without angina pectoris; I11.0 Hypertensive heart disease with heart failure; I50.9 Heart failure, unspecified; G47.33 Obstructive sleep apnea (adult) (pediatric); E11.9 Type 2 diabetes mellitus without complications; I89.0 Lymphedema, not elsewhere classified; E03.9 Hypothyroidism, unspecified; E66.9 Obesity, unspecified; G89.29 Other chronic pain; Z79.01 Long term (current) use of anticoagulants; Z98.890 Other specified postprocedural states; Z79.899 Other long term (current) drug therapy; Z88.2 Allergy status to sulfonamides; Z88.1 Allergy status to other antibiotic agents; Z88.8 Allergy status to other drugs, medicaments and biological substances; Z79.890 Hormone replacement therapy; Z99.89 Dependence on other enabling machines and devices; Z68.41 Body mass index [BMI] 40.0-44.9, adult
CPT/HCPCS: 36415; 71045; 80048; 82962; 83605; 83880; 84484; 85025; 87040; 87804; 93005; 94640; 94664; 96365; 96366; 96375; 97161; 97530; 99285; A9270; J1815; J1956; J2930; U0001; 96376; 99284; G0378; J7620-GY; U0002